=== PATIENT | female | born 1945 | race Caucasian/White ===

== ENCOUNTER → 2024-03-16 | Outpatient (CLI) | payer MEDICARE, SELFPAY ==
[2024-03-16 12:13] LABS: INR 3.3 (0.9-1.3)
[2024-03-16 12:19] LABS: Prothrombin Time 33.4 Seconds (9.0-12.2)
== END | disposition home or self-care (01) ==
LOC: COPL 11:12
PROVIDERS: PCP Internal Medicine; Referring Provider Internal Medicine Cardiovascular Disease; Visit Provider Internal Medicine Cardiovascular Disease
DX: I48.20 Chronic atrial fibrillation, unspecified (principal)
CPT/HCPCS: 36415; 85610

== ENCOUNTER → 2024-03-23 | Outpatient (CLI) | payer MEDICARE, SELFPAY ==
[2024-03-23 12:52] LABS: INR 2.4 (0.9-1.3); Prothrombin Time 24.6 Seconds (9.0-12.2)
== END | disposition home or self-care (01) ==
LOC: COPL 11:23
PROVIDERS: PCP Internal Medicine; Referring Provider Internal Medicine Cardiovascular Disease; Visit Provider Internal Medicine Cardiovascular Disease
DX: I48.20 Chronic atrial fibrillation, unspecified (principal)
CPT/HCPCS: 36415; 85610

== ENCOUNTER → 2024-04-22 | Outpatient (CLI) | payer MEDICARE, SELFPAY ==
[2024-04-22 12:41] LABS: INR 2.1 (0.9-1.3); Prothrombin Time 21.5 Seconds (9.0-12.2)
== END | disposition home or self-care (01) ==
LOC: COPL 11:19
PROVIDERS: PCP Internal Medicine; Referring Provider Internal Medicine Cardiovascular Disease; Visit Provider Internal Medicine Cardiovascular Disease
DX: I48.20 Chronic atrial fibrillation, unspecified (principal)
CPT/HCPCS: 36415; 85610

== ENCOUNTER → 2024-05-18 | Outpatient (CLI) | payer MEDICARE, SELFPAY ==
[2024-05-18 12:27] LABS: INR 1.6 (0.9-1.3); Prothrombin Time 17.3 Seconds (9.0-12.2)
== END | disposition home or self-care (01) ==
PROVIDERS: PCP Internal Medicine; Referring Provider Internal Medicine Cardiovascular Disease; Visit Provider Internal Medicine Cardiovascular Disease
DX: I48.20 Chronic atrial fibrillation, unspecified (principal)
CPT/HCPCS: 36415; 85610

== ENCOUNTER 2024-05-20 14:02 | Inpatient (IN) | payer MEDICARE, SELFPAY ==
[2024-05-20 14:25] VITALS: BP 161/84; PULSE 88; RESP 19; TEMP 36.7; O2SAT 98; BMI 37.8
--- NOTE | 2024-05-20 14:36 | XR_ITS ---
Examination: CT abdomen with intravenous contrast CT pelvis with intravenous contrast 2-D coronal reconstructions 2-D sagittal reconstructions Date and time of exam:May 20, 2024 1658 hours Comparison March 31, 2012 INDICATIONS: Right lower abdominal pain beginning 2 days ago. CTDI: vol (mGy) 12.4 DLP: (mGycm) 725 Technique: Multiple axial sections of the abdomen and pelvis have been obtained. 64 slice high-resolution scanner used. 3 mm axial sections have been obtained, post intravenous injection 60 cc [id number] 2-D sagittal, coronal reconstructions obtained. Low dose protocols were performed. One or more of the following dose reduction techniques were used; automated exposure control, adjustment of the mA and/or KV according to patient size, use of iterative reconstruction technique. Findings: Mild enlargement left atrium left ventricle Small right lobe liver cyst Cholelithiasis Small splenule Gastric sutures No pancreatic mass 23 mm left adrenal nodule Left extrarenal pelvis stable compared with March 31, 2012 No renal or ureteral calculi, no hydronephrosis Abdominal aortic calcification Interval hemorrhage in the right lower abdominal wall, largely rectus hematoma measuring 10 x 5.2 x 17 cm No bowel obstruction No diverticulitis Atrophic uterus Urinary bladder intact Advanced degenerative disc disease lumbar spine IMPRESSION: Large hematoma in the right anterior lower abdominal wall, 10 x 5.2 x 17 cm
--- NOTE | 2024-05-20 14:37 | PD.EDRME ---
Rapid Medical Screening Exam RME Arrival date/time: 05/20/24 14:02 78-year-old female presents to the emergency department with complaints of right lower quadrant abdominal pain x 1 day. I have greeted and performed a focused initial assessment of this patient. Initial appropriate labs ordered at this time. A comprehensive ED assessment and evaluation of the patient and analysis of all test and completion of medical decision making process will be conducted by additional ED provider. Chief Complaint: General Adult/Misc Complain Time Seen by Provider: 05/20/24 14:28 Vital signs: Vital Signs Temperature 98.0 F 05/20/24 14:25 Pulse Rate 88 05/20/24 14:25 Respiratory Rate 19 05/20/24 14:25 Blood Pressure 161/84 H 05/20/24 14:25 Pulse Oximetry (%) 98 05/20/24 14:25 Oxygen Delivery Method Room Air 05/20/24 14:25
[2024-05-20 15:07] LABS: Collection Type, Urine Clean Catch
[2024-05-20 15:09] LABS: Basophils % (Auto) 0 % (0-2.5); Eosinophils # (Auto) 0.2 Thou/mm3 (0.0-0.5); Eosinophils % (Auto) 2 % (0-10); Hemoglobin 11.7 g/dL (12.0-16.0); Immature Granulocytes % (Auto) 0 % (0-0); Immature Granulocytes Auto 0.02 Thou/mm3 (0.00-0.00); Lymphocytes # (Auto) 1.4 Thou/mm3 (1.0-4.8); Lymphocytes % (Auto) 15 % (10-50); Mean Corpuscular HGB Conc 32.5 g/dl (31.0-37.0); Mean Corpuscular Hemoglobin 28.1 pg (25.0-35.0); Mean Corpuscular Volume 86 fL (80-100); Monocytes # (Auto) 0.7 Thou/mm3 (0.0-0.8); Monocytes % (Auto) 8 % (0-12); Neutrophils # (Auto) 6.7 Thou/mm3 (1.8-7.7); Neutrophils % (Auto) 75 % (37-80); Nucleated Red Blood Cell % 0 /100 WBC (0); Platelet Count 265 Thou/mm3 (140-440); RDW Standard Deviation 45.6 fL (36.4-46.3); Red Blood Count 4.17 Miln/mm3 (4.00-5.20)
[2024-05-20 15:30] LABS: Alanine Aminotransferase 11 U/L (10-49); Albumin, Serum 4.9 gm/dL (3.4-4.8); Albumin/Globulin Ratio 1.9 (1.2-2.2); Alkaline Phosphatase 82 U/L (46-116); Anion Gap 8 (7-16); Aspartate Amino Transferase 23 U/L (0-34); BUN/Creatinine Ratio 18 Ratio (12-20); Bilirubin,Total 0.5 mg/dL (0.3-1.2); Blood Urea Nitrogen 18 mg/dL (9-23); Calcium 10.2 mg/dL (8.3-10.6); Calcium (Corrected) 10.2 mg/dL (8.5-10.1); Carbon Dioxide 28.6 mMol/L (20.0-31.0); Chloride 107 mMol/L (98-107); Estimated Creatinine Clearance 53.2 mL/min (>60); Globulin 2.6 gm/dL (2.3-3.5); Glucose 113 mg/dL (74-106); Lipase 39 U/L (12-53); Osmolality,Calculated 289 (275-295); Potassium 4.6 mMol/L (3.4-5.1); Sodium 144 mMol/L (136-145); Total Protein 7.5 gm/dL (5.7-8.2); eGFR 58 See Note
[2024-05-20 15:46] LABS: Bacteria,Urine Rare; Bilirubin,Urine Negative (Negative); Blood,Urine Negative (Negative); Clarity,Urine Clear (Clear/Hazy); Color,Urine Lt-Yellow (Lt Yel-Yel); Glucose, Urine Negative (Negative); Hyaline Casts,Urine < 1 /hpf (0-1); Ketones,Urine Negative (Negative); Leukocyte Esterase,Urine Negative (Negative); Nitrite,Urine Negative (Negative); Protein,Urine Negative (Neg - Trace); RBC,Urine 2 /hpf (0-3); Squamous Epithelial Cell,Urine < 1 /hpf (0-5); Urobilinogen,Urine Negative mg/dL (0.0-1.0); WBC,Urine 1 /hpf (0-5)
[2024-05-20 17:34] VITALS: BP 147/85; PULSE 82; RESP 18; TEMP 36.4; O2SAT 97
[2024-05-20] MEDS: ONDANSETRON INJ 2 MG/ML INJ 2 ML 4 MG IV (17:39)
[2024-05-20] MEDS: MORPHINE SULF INJ 10 MG/ML VIAL 5 MG IVP (17:39)
--- NOTE | 2024-05-20 17:39 | EDNOTE_ITS ---
ED Abdominal Pain RME/HPI General Chief Complaint: General Adult/Misc Complain Stated complaint: right lower pelvic pain Time seen by provider: 05/20/24 14:28 Arrival date/time: 05/20/24 14:02 RME / HPI RME / HPI narrative: 05/20/24 14:02 78-year-old female presents to the emergency department with complaints of right lower quadrant abdominal pain x 1 day. I have greeted and performed a focused initial assessment of this patient. Initial appropriate labs ordered at this time. A comprehensive ED assessment and evaluation of the patient and analysis of all test and completion of medical decision making process will be conducted by additional ED provider. DR. ORTEGA MAIN ED EVALUATION: 78 year old female presents to the Emergency Department with complaint of right lower quadrant pain onset 1 day. Pain is described as aching and rated mild to moderate in severity. No radiation reported at this time. Patient denies any other symptoms at this time. PMHx: Chronic atrial fibrillation, CHF, hyperlipidemia, and right knee replacement surgery. Social Hx: No tobacco, alcohol, or substance use. Related Data Home Medications ?Medication ?Instructions ?Recorded ?Confirmed calcium 600 mg (as 1 tab PO BID 08/15/22 08/16/22 carbonate)-vitamin D3 5 mcg (200 unit) tablet carvedilol 6.25 mg tablet 6.25 mg PO HS 08/15/22 08/16/22 digoxin 125 mcg (0.125 mg) tablet 125 mcg PO HS 08/15/22 08/16/22 furosemide 20 mg tablet 20 mg PO QDAY 08/15/22 08/16/22 lysine 1,000 mg tablet 1,000 mg PO BID 08/15/22 08/16/22 omeprazole 20 mg capsule,delayed 20 mg PO QDAY 08/15/22 08/16/22 release simvastatin 40 mg tablet 40 mg PO HS 08/15/22 08/16/22 vitamin B complex 1 cap PO QDAY 08/15/22 08/16/22 warfarin 1 mg tablet 1 mg PO QDAY 08/15/22 08/16/22 warfarin 6 mg tablet 6 mg PO QDAY 08/15/22 08/16/22 Allergies Allergy/AdvReac Type Severity Reaction Status Date / Time No Known Allergies Allergy Verified 08/16/22 08:38 Review of Systems Review of Systems Systems Reviewed: All systems reviewed, normal except as documented Narrative Review of Systems: GEN: No fever, no chills, no weight loss EYES: No discharge, no visual changes, no pain HEENT: No ear pain, no congestion, no sore throat PULM: No shortness of breath, no cough, no congestion CV: No chest pain, no dyspnea on exertion, no palpitations GI: No nausea, no vomiting, no diarrhea, + right lower quadrant pain, no constipation : No frequency, no urgency and no dysuria MUSC/SKEL: No joint pain, no back pain SKIN: No rash PSYCH: No hallucinations, no depression HEME/LYMPH: No easy bleeding or bruising tendencies NEURO: No weakness, no headache Past Medical History Past Medical History NEUROLOGIC: Negative Neurological Disorders or Seizures CARDIAC: Positive Atrial Fibrillation, Hypercholesterolemia, Hypertension and Hypotension; Negative Cardiac Disorders or Congestive Heart Failure RESPIRATORY: Negative Chronic Obstructive Pulmonary Disease (COPD) or Asthma GASTROINTESTINAL: Positive Gastrointestinal Disorders and Gastroesophageal Reflux Disease GENITOURINARY: Negative Genitourinary Disorders or Renal Disease REPRODUCTIVE: Positive Previous Pregnancies (); Negative Pelvic Inflammatory Disease MUSCULOSKELETAL: Negative Musculoskeletal Disorders ENDOCRINE: Negative Endocrine Disorders, Diabetes Mellitus Type 1 or Diabetes Mellitus Type 2 HEMATOLOGIC: Negative Blood Disorders or Sickle Cell Disease OTHER HISTORY: Positive Blood Transfusions; Negative Blood Transfusion Reaction, Anesthesia Reactions, Clostridium Difficile or Cancer Family History FAMILY HISTORY: Negative Family Cardiac Disorders Surgical History SURGICAL: Positive Joint Replacement (right knee) and of Shoulder Sx (right shoulder) Social History SMOKING STATUS: Never smoker ED Exam Narrative Physical exam: GENERAL APPEARANCE: alert and oriented x 4, well-developed, well-nourished, no acute distress VITALS: All vitals were reviewed and the pulse ox is 97% on room air, which is normal according to my interpretation. HEENT: Normocephalic, atraumatic; pupils equal, round, reactive to light; EOMI; mucous membranes pink, moist; oropharynx clear NECK: Supple LUNGS: CTABL; no wheezes, no rales, no rhonchi HEART: Regular rate, regular rhythm; normal S1, S2; no murmurs ABDOMEN: non distended; normal BS; soft, no tenderness, no guarding, no rebound; no masses, no organomegaly, no hernia BACK: no CVA tenderness EXTREMITIES: atraumatic; no edema NEUROLOGIC: awake; alert and oriented x4; cranial nerves II-XII grossly intact; no focal sensory or motor deficits PSYCHIATRIC: appropriate mood and affect SKIN: warm, dry, normal color; no rashes Course Quality Measures none Orders Category Date Time Status Admit to Inpatient Status Routine Admission 05/20/24 19:54 Active Patient Condition Routine Admission 05/20/24 19:54 Ordered Activity as Tolerated Routine Care 05/20/24 19:55 Ordered COVID-19 Screening Questionnaire NOW Care 05/20/24 18:[address] Screening NOW Care 05/20/24 14:37 Active Decision to Admit X1 Care 05/20/24 18:11 Active EKG (ED ONLY) *Do not use* NOW Care 05/20/24 21:00 Active Insert IV NOW Care 05/20/24 14:36 Active Miscellaneous Nursing Order NOW Care 05/20/24 19:59 Active Notify provider NEEDED Care 05/20/24 19:54 Active Sequential Compression Device QSHIFT Care 05/20/24 19:54 Active Consult to General Surgery Stat Cons 05/20/24 20:08 Ordered Diet Cardiac Diet 05/20/[address] abdomen pelvis w con Stat Exams 05/20/24 14:36 Completed EKG (ED Only) Stat Exams 05/20/24 21:00 Ordered Basic Metabolic Panel AM DRAW Lab 05/21/24 05:00 Ordered Basic Metabolic Panel AM DRAW Lab 05/22/24 05:00 Ordered Basic Metabolic Panel AM DRAW Lab 05/23/24 05:00 Ordered CBC AM DRAW Lab 05/21/24 05:00 Ordered CBC AM DRAW Lab 05/22/24 05:00 Ordered CBC AM DRAW Lab 05/23/24 05:00 Ordered CBC Stat Lab 05/20/24 14:54 Completed Comprehensive Metabolic Panel Stat Lab 05/20/24 14:54 Completed Lipase Stat Lab 05/20/24 14:54 Completed PT [Prothrombin Time with INR] Stat Lab 05/20/24 14:54 Completed PTT [Partial Thromboplastin Time] Stat Lab 05/20/24 14:54 Completed Prothrombin Time with INR AM DRAW Lab 05/21/24 05:00 Ordered Prothrombin Time with INR AM DRAW Lab 05/22/24 05:00 Ordered Prothrombin Time with INR AM DRAW Lab 05/23/24 05:00 Ordered Urinalysis Stat Lab 05/20/24 15:00 Completed Acetaminophen Tab [Tylenol Tab] Med 05/20/24 19:54 Active 650 mg PO Q6H PRN Milk Of Magnesia Susp [Mom Susp] Med 05/20/24 19:54 Active 30 ml PO QDAY PRN Morphine Inj Med 05/20/24 20:07 Active 1 mg IVP Q6H PRN Morphine Inj Med 05/20/24 17:30 Discontinued 5 mg IVP X1 ONE Ondansetron Inj [Zofran Inj] Med 05/20/24 19:54 Active 4 mg IV Q6H PRN Ondansetron Inj [Zofran Inj] Med 05/20/24 17:29 Discontinued 4 mg IV X1 ONE Code Status Routine Oth 05/20/24 19:54 Ordered Vital Signs Vital signs: Vital Signs Temperature 98.0 F 05/20/24 14:25 Pulse Rate 88 05/20/24 14:25 Respiratory Rate 19 05/20/24 14:25 Blood Pressure 161/84 H 05/20/24 14:25 Pulse Oximetry (%) 98 05/20/24 14:25 Oxygen Delivery Method Room Air 05/20/24 14:25 Abdominal Pain MDM MDM Narrative MDM Narrative:: Pauline Boudreaux am scribing for and in the presence of Dr. Ortega. Patient data External records reviewed:: [facility] previous records (Reviewed colonoscopy note by Dr. Santacruz dated 08/16/22.) Clinical information provided by:: patient Social determinants that could affect healthcare access:: none Patient has the following chronic illnesses:: Chronic atrial fibrillation, CHF, hyperlipidemia, and right knee replacement surgery. How is presenting disease/condition affected by chronic disease/condition?: exacerbated by Evaluation data The following diagnostics were reviewed and interpreted by me:: lab results and radiology exam(s) Lab and/or radiology exams considered but not ordered:: none Interpretation Summary: Procedure(s): CT abdomen pelvis w con Accession Number(s): [id number] cc: Slim Morales MD; Vernon Mattson MD; Cecile Sargent~ Examination: CT abdomen with intravenous contrast CT pelvis with intravenous contrast 2-D coronal reconstructions 2-D sagittal reconstructions Date and time of exam:May 20, 2024 1658 hours Comparison March 31, 2012 INDICATIONS: Right lower abdominal pain beginning 2 days ago. CTDI: vol (mGy) 12.4 DLP: (mGycm) 725 Technique: Multiple axial sections of the abdomen and pelvis have been obtained. 64 slice high-resolution scanner used. 3 mm axial sections have been obtained, post intravenous injection 60 cc [id number] 2-D sagittal, coronal reconstructions obtained. Low dose protocols were performed. One or more of the following dose reduction techniques were used; automated exposure control, adjustment of the mA and/or KV according to patient size, use of iterative reconstruction technique. Findings: Mild enlargement left atrium left ventricle Small right lobe liver cyst Cholelithiasis Small splenule Gastric sutures No pancreatic mass 23 mm left adrenal nodule Left extrarenal pelvis stable compared with March 31, 2012 No renal or ureteral calculi, no hydronephrosis Abdominal aortic calcification Interval hemorrhage in the right lower abdominal wall, largely rectus hematoma measuring 10 x 5.2 x 17 cm No bowel obstruction No diverticulitis Atrophic uterus Urinary bladder intact Advanced degenerative disc disease lumbar spine IMPRESSION: Large hematoma in the right anterior lower abdominal wall, 10 x 5.2 x 17 cm Dictated By: Vernon Mattson MD Medications / Prescriptions Medications or Prescriptions considered but not ordered:: none Medication administrations:: Medication Administration History Acetaminophen (Acetaminophen 325 Mg Tablet) 650 mg PO Q6H PRN PRN Reason: Fever >101.5 Stop: 06/19/24 19:53 Magnesium Hydroxide (Milk Of Magnesia Susp 30 Ml Udc) 30 ml PO QDAY PRN; Protocol PRN Reason: CONSTIPATION Stop: 06/19/24 19:53 Morphine Sulfate (Morphine Sulf Inj 10 Mg/Ml Vial) 1 mg IVP Q6H PRN PRN Reason: PAIN SCALE 4-10(Mod-Sev Ondansetron HCl (Ondansetron Inj 2 Mg/Ml Inj 2 Ml) 4 mg IV Q6H PRN; Protocol PRN Reason: NAUSEA OR VOMITING Stop: 06/19/24 19:53 Discontinued Medications Morphine Sulfate (Morphine Sulf Inj 10 Mg/Ml Vial) 5 mg IVP X1 ONE Stop: 05/20/24 17:31 Last Admin: 05/20/24 17:39 Dose: 5 mg Documented By: SAMM Ondansetron HCl (Ondansetron Inj 2 Mg/Ml Inj 2 Ml) 4 mg IV X1 ONE; Protocol Stop: 05/20/24 17:30 Last Admin: 05/20/24 17:39 Dose: 4 mg Documented By: SAMM see above Consultations Consultation(s) initiated? (list below): Yes Consultation #1 (Physician, Specialty, Details): Discussed test HPI, PMHx, lab, radiology results and/or management with hospitalist. Will admit for further evaluation and management. Accepts patient for admission. Time: 18:30 Diagnosis Differential diagnosis abdominal pain: abdominal pain, acute appendicitis and calculus of kidney Most likely diagnosis given after review of the tests above:: As noted below. Admission Indicated Admission indicated?: indicated Admission Request Was there a request for admission?: Yes Admission Attestation Admission request attestation: Discussed case with [] from Hospitalist service regarding admission. Discussed patients ED course, exam findings, labs, and radiology results. The Hospitalist [agrees,declines] to accept the patient for admission. Disposition Plan Disposition Plan: Admit Discharge Plan Plan Patient Disposition: Admit Acute Care w/in Hospital Prescriptions/Referrals Prescriptions/Med Rec: No Action carvedilol 6.25 mg tablet 6.25 mg PO HS Patient Comments: TAKE 1 TABLET BY MOUTH TWICE DAILY lysine 1,000 mg Tablet 1,000 mg PO BID calcium carbonate-vitamin D3 600 mg-5 mcg (200 unit) Tablet 1 tab PO BID simvastatin 40 mg tablet 40 mg PO HS Patient Comments: TAKE 1 TABLET BY MOUTH ONCE DAILY warfarin 6 mg tablet 6 mg PO QDAY Patient Comments: TAKE 1 TABLET BY MOUTH ONCE DAILY omeprazole 20 mg capsule,delayed release(DR/EC) 20 mg PO QDAY Patient Comments: TAKE 1 CAPSULE BY MOUTH ONCE DAILY digoxin 125 mcg (0.125 mg) tablet 125 mcg PO HS Patient Comments: TAKE 1 TABLET BY MOUTH ONCE DAILY furosemide 20 mg tablet 20 mg PO QDAY Patient Comments: TAKE 1 TABLET BY MOUTH ONCE DAILY warfarin 1 mg tablet 1 mg PO QDAY Patient Comments: TAKE 1 TABLET BY MOUTH ONCE DAILY vitamin B complex Capsule 1 cap PO QDAY Referrals: Slim Morales MD [Primary Care Provider] - In 1 week Patient/Caregiver Discharge Instructions Print Language: Chinese Stand Alone Forms: [employer] Award Info., Patient Portal Info Letter
[2024-05-20 17:59] LABS: INR 1.7 (0.9-1.3); Partial Thromboplastin Time 33.7 Seconds (22.0-36.0); Prothrombin Time 17.6 Seconds (9.0-12.2)
--- NOTE | 2024-05-20 18:05 | PC.NURSE ---
Pt takes 5mg warfarin daily
--- NOTE | 2024-05-20 18:08 | EDNOTE_ITS ---
Emergency Room Addendum Addendum Narrative: 1804:Discussed with Dr. Hodge, Gen Surg deputy insurance commissioner, who will consult on the patient. 1809: Discussed with Dr Vargas, the medicine resident deputy insurance commissioner, who accepts the patient for admission.
--- NOTE | 2024-05-20 18:08 | PD.EDADDENDU ---
Emergency Room Addendum Addendum Narrative: 1804:Discussed with Dr. Hodge, Gen Surg train station server, who will consult on the patient. 1809: Discussed with Dr Vargas, the medicine resident train station server, who accepts the patient for admission.
--- NOTE | 2024-05-20 18:13 | EVENTNT_ITS ---
<Statement entered by Abena Pérez MD - 05/25/24 12:15> I reviewed above note and agree with findings and plans. I have also personally examined the patient with medicine team and went over assessment and plan with medical team including internet e commerce specialist and resident physician. Documentation for date of: 05/20/24 Event Note Event Note: The patient is a 78-year-old female with significant past medical history of Chronic atrial fibrillation on Coumadin, CHF, hyperlipidemia and right knee replacement who presented to ED with chief complaint of right lower abdominal pain for 1 day. Abdomen/pelvis CT was significant for large hematoma in the right anterior lower abdominal wall, 10 x 5.2 x 17 cm. As per ED physician, general surgeon Dr. Hodge was contacted and he agreed on consulting on this patient. As we received the call from ED physician after 6 PM, we will let the night hospitalist team know about this. The patient's management plan was discussed with my attending physician MD Rajesh St MD, PGY2
[2024-05-20 19:40] VITALS: BP 121/72; PULSE 82; RESP 16; TEMP 36.6; O2SAT 99
--- NOTE | 2024-05-20 19:45 | PD.RESHP ---
Documentation for date of: 05/20/24 [facility] History of Present Illness Chief complaint: Abdominal pain History of present illness: A 78yr old femlae with significant past medical history of Rheumatic Heart disease diagnosed at the age of 4, Chronic atrial fibrillation on warfarin 5mg, Hypertension, Hyperlipidemia, s/p right knee replacement, s/p right shoulder surgery ?reverse total shoulder arthroplasty presented to the hospital with chief complaints of abdominal pain since 1 day. Patient was apparently normal 1 day ago, patient went to physiotherapy for her right shoulder and when trying to get up from the bed she noticed sudden onset of abdominal pain and the physiotherapist over there helped her to sit her up and since then patient has severe pain mainly in right lower quadrant of abdomen. Denies fever, constipation, diarrhea, shortness of breath, chest pain, palpitations, blood/blackish discoloration of stools. Patient endorsed that her last warfarin intake was yesterday at 5 PM. Denies bleeding manifestations from any other sites. ED Course: -Initial vitals were stable except for blood pressure of 161/84 mmHg. -Labs significant for Hb 11.7, INR 1.7, PT 17.6, BUN 18, creatinine 1. -CT abdomen showed large hematoma in right lower abdominal wall measuring 10 x 5.2 x 17 cm. -In the ED, patient was given ondansetron and morphine. -Patient was admitted for hematoma in abdominal wall Past medical history: Rheumatic heart disease, chronic atrial fibrillation on warfarin, hypertension, Hyperlipidemia Past surgical history: Right knee replacement, right shoulder surgery ? Reverse total shoulder total arthroplasty, bariatric surgery 20 years ago Social history: Occasional alcohol intake, denies smoking, marijuana or other illicit drug abuse. Review of Systems Review of Systems Narrative Review of Systems: Constitutional: No Weight Change, No Fever, No Chills, No Night Sweats, No Fatigue, No Malaise ENT/Mouth: No Hearing Changes, No Ear Pain, No Nasal Congestion, No Sinus Pain, No Hoarseness, No sore throat, No Rhinorrhea, No Swallowing Difficulty Eyes: No Eye Pain, No Swelling, No Redness, No Foreign Body, No Discharge, No Vision Changes Cardiovascular: No Chest Pain, No SOB, No PND, No Dyspnea on Exertion, No Orthopnea, No Edema, No Palpitations Respiratory: No Cough, No Sputum, No Wheezing, No Dyspnea Gastrointestinal: No Nausea, No Vomiting, No Diarrhea, No Constipation, RLQ pain, No Heartburn, No Anorexia, No Dysphagia, No Hematochezia, No Melena, No Flatulence, No Jaundice Genitourinary: No Dysuria, No Urinary Frequency, No Hematuria, No Urinary Incontinence, No Urgency, No Flank Pain, No Urinary Flow Changes, No Hesitancy Musculoskeletal: No Arthralgias, No Myalgias, No Joint Swelling, No Joint Stiffness, No Back Pain, No Neck Pain, No Injury History Skin: No Skin Lesions, No Pruritis Neuro: No Weakness, No Numbness, No Paresthesias, No Loss of Consciousness, No Syncope, No Dizziness, No Headache, No Coordination Changes, No Recent Falls Past Medical History Past Medical History CARDIAC: Positive Atrial Fibrillation, Rheumatic Fever and Hypertension MUSCULOSKELETAL: Positive Arthritis Exam Vital Signs Temp Pulse Resp BP Pulse Ox O2 Del Method 98 F 82 16 121/72 99 Room Air 05/20/24 19:40 05/20/24 19:40 05/20/24 19:40 05/20/24 19:40 05/20/24 19:40 05/20/24 19:40 Narrative Exam General: Awake. Lying comfortably on the bed. HEENT: Normocephalic, atraumatic, mucous membranes moist. Heart: Regular rate and rhythm, no murmurs. Lungs: Clear to auscultation with no wheezing or crackles. Abdomen: Soft, nondistended, severe tenderness noted in the right lower quadrant and tense swelling is felt, positive bowel sounds. ?No guarding or rebound tenderness. Neurologic: Alert and oriented x3, no gross neurological deficit, and patient able to move all 4 extremities. Extremities: No edema. Skin: No rash or ecchymoses. Results: Labs 05/20/24 14:54 05/20/24 14:54 Labs: Short CBC 05/20/24 Range/Units 14:54 WBC 9.0 (3.6-11.0) Thou/mm3 Hgb 11.7 L (12.0-16.0) g/dL Hct 36.0 (36.0-46.0) % Plt Count 265 (140-440) Thou/mm3 BMP 05/20/24 14:54 Sodium 144 Potassium 4.6 Chloride 107 Carbon Dioxide 28.6 BUN 18 Creatinine 1.0 Glucose 113 H Calcium 10.2 Liver Function 05/20/24 Range/Units 14:54 Total Bilirubin 0.5 (0.3-1.2) mg/dL AST 23 (0-34) U/L ALT 11 (10-49) U/L Alkaline Phosphatase 82 (46-116) U/L Albumin 4.9 H (3.4-4.8) gm/dL Urine 05/20/24 Range/Units 15:00 Urine Color Lt-Yellow (Lt Yel-Yel) Urine Clarity Clear (Clear/Hazy) Urine pH 6.0 (5.0-7.0) Ur Specific [place] 1.010 (1.001-1.035) Urine Protein Negative (Neg - Trace) Urine Glucose (UA) Negative (Negative) Quality Measures Quality Measures none Advance care planning discussed with:: patient Medications Home Medications and Allergies Home Medications ?Medication ?Instructions ?Recorded ?Confirmed ?Type calcium 600 mg (as 1 tab PO BID 08/15/22 05/20/24 History carbonate)-vitamin D3 5 mcg (200 unit) tablet carvedilol 6.25 mg tablet 6.25 mg PO BID 08/15/22 05/20/24 History digoxin 125 mcg (0.125 mg) tablet 125 mcg PO HS 08/15/22 05/20/24 History furosemide 20 mg tablet 20 mg PO QDAY 08/15/22 05/20/24 History lysine 1,000 mg tablet 1,000 mg PO BID 08/15/22 05/20/24 History simvastatin 40 mg tablet 40 mg PO HS 08/15/22 05/20/24 History vitamin B complex 1 cap PO QDAY 08/15/22 05/20/24 History losartan 100 mg tablet 100 mg PO QDAY 05/20/24 05/20/24 History meloxicam 15 mg tablet 15 mg PO QDAY 05/20/24 05/20/24 History omeprazole 40 mg capsule,delayed 40 mg PO QDAY 05/20/24 05/20/24 History release oxycodone-acetaminophen 5 mg-325 1 tab PO Q4HR PRN Pain (Scale 05/20/24 05/20/24 History mg tablet Score 4-6) warfarin 5 mg tablet 5 mg PO HS 05/20/24 05/20/24 History Allergies Allergy/AdvReac Type Severity Reaction Status Date / Time No Known Allergies Allergy Verified 08/16/22 08:38 Visit Medications Discontinued Medications Morphine Sulfate (Morphine Sulf Inj 10 Mg/Ml Vial) 5 mg IVP X1 ONE Stop: 05/20/24 17:31 Last Admin: 05/20/24 17:39 Dose: 5 mg Ondansetron HCl (Ondansetron Inj 2 Mg/Ml Inj 2 Ml) 4 mg IV X1 ONE; Protocol Stop: 05/20/24 17:30 Last Admin: 05/20/24 17:39 Dose: 4 mg Assessment & Plan Plan A 78yr old femlae with significant past medical history of Rheumatic Heart disease diagnosed at the age of 4, Chronic atrial fibrillation on warfarin 5mg, Hypertension, Hyperlipidemia, s/p right knee replacement, s/p right shoulder surgery ?reverse total shoulder arthroplasty presented to the hospital with chief complaints of abdominal pain since 1 day and admitted for large anterior abdominal wall hematoma. # Large right abdominal wall hematoma # On warfarin 5 Mg -Patient presented with sudden onset of abdominal pain with tenderness since 1 day -Denies any other bleeding manifestations -On examination, severe tenderness with swelling noted in right lower quadrant and hypogastric area -Labs showed mild anemia 11.7, INR 1.7. -CT abdomen showed large hematoma in right anterior abdominal wall measuring 10 x 5.2 x 17 cm Plan -Dr Hodge was consulted -Held warfarin for now -Monitor for any bleeding manifestations -Follow-up with PT with INR -Warfarin 1 Mg every 6 hourly as needed # Acute blood loss anemia -Hemoglobin in 02/25 is 12.5 -Hemoglobin at the time of admission is 11.7 -Monitor CBC and transfuse if needed # Chronic atrial fibrillation on warfarin # History of rheumatic heart disease -Patient is following with engineered wood designer Dr. Mock -Patient endorsed that she is compliant with warfarin intake and warfarin checks -Recent INR that she know of is 1.7. -Patient is using warfarin as she could not afford Eliquis -Patient is using carvedilol, furosemide and digoxin at home -Medication reconciliation is ordered -Resume medications # Hypertension -Blood pressure at the time of admission is 161/84 mmHg, likely due to pain -After giving morphine, blood pressure downtrended to 121/72 mmHg -Patient is using carvedilol at home -Resume once medical reconciliation # Hyperlipidemia -Lipid panel done on 04/27 showed cholesterol 214, HDL 105 -Resume simvastatin Hospital Maintenance: Dispo: medsurg DVT ppx: SCD GI ppx: not needed Diet : cardiac IV lines: peripheral Code status: Limited - DNI Patient plan of care was discussed with the attending physician, Dr. Rebecca Rainey, PGY1 Attending Provider Attestation/Addendum Face to face evaluation was performed by me. I have personally seen and examined the patient. I discussed the assessment and plan with the entire medicine team. I reviewed available medical records, imaging studies, laboratory results. I agree with the above subjective data, objective findings, assessment and plan except as corrected by me or noted below Abdominal hematoma systemic anticoagulation subtherapeutic INR abdominal pain due to above Pt developed abdominal pain while working with PT continue to hold warfarin Surgery consulted, CT abdomen done monitor closely, INR is 1.7 Her OP Aviation Safety Technician Dr Mock
--- NOTE | 2024-05-20 22:03 | PC.NURSE ---
report called at this time.
[2024-05-20 22:56] VITALS: BMI 35.0
[2024-05-20] MEDS: MORPHINE SULF INJ 10 MG/ML VIAL IVP (23:27)
[2024-05-21] VITALS (9 sets, daily range): BP systolic 113–152; BP diastolic 6–77; PULSE 64–88; RESP 15–18; TEMP 36.1–36.6; O2SAT 95–99
[2024-05-21 05:56] LABS: Basophils % (Auto) 0 % (0-2.5); Eosinophils # (Auto) 0.1 Thou/mm3 (0.0-0.5); Eosinophils % (Auto) 2 % (0-10); Hematocrit 29.1 % (36.0-46.0); Hemoglobin 9.5 g/dL (12.0-16.0); Immature Granulocytes % (Auto) 0 % (0-0); Immature Granulocytes Auto 0.02 Thou/mm3 (0.00-0.00); Lymphocytes # (Auto) 1.4 Thou/mm3 (1.0-4.8); Lymphocytes % (Auto) 20 % (10-50); Mean Corpuscular HGB Conc 32.6 g/dl (31.0-37.0); Mean Corpuscular Hemoglobin 28.1 pg (25.0-35.0); Mean Corpuscular Volume 86 fL (80-100); Monocytes # (Auto) 0.7 Thou/mm3 (0.0-0.8); Monocytes % (Auto) 10 % (0-12); Neutrophils # (Auto) 4.5 Thou/mm3 (1.8-7.7); Neutrophils % (Auto) 67 % (37-80); Nucleated Red Blood Cell % 0 /100 WBC (0); Platelet Count 202 Thou/mm3 (140-440); RDW Standard Deviation 45.6 fL (36.4-46.3); Red Blood Count 3.38 Miln/mm3 (4.00-5.20); White Blood Count 6.8 Thou/mm3 (3.6-11.0)
[2024-05-21 06:07] LABS: INR 1.5 (0.9-1.3); Prothrombin Time 15.6 Seconds (9.0-12.2)
[2024-05-21 06:18] LABS: Anion Gap 7 (7-16); BUN/Creatinine Ratio 25 Ratio (12-20); Blood Urea Nitrogen 15 mg/dL (9-23); Calcium 9.1 mg/dL (8.3-10.6); Carbon Dioxide 30.8 mMol/L (20.0-31.0); Chloride 103 mMol/L (98-107); Creatinine (Component) 0.6 mg/dL (0.6-1.3); Estimated Creatinine Clearance 91.5 mL/min (>60); Glucose 95 mg/dL (74-106); Osmolality,Calculated 282 (275-295); Potassium 3.6 mMol/L (3.4-5.1); Sodium 141 mMol/L (136-145); eGFR > 60 See Note
[2024-05-21] MEDS: MORPHINE SULF INJ 10 MG/ML VIAL IVP ×2 (07:31→22:14)
[2024-05-21] MEDS: PHYTONADIONE INJ 10 MG/ML AMP SC (09:52)
--- NOTE | 2024-05-21 10:19 | PC.SS ---
Initial assessment: Patient is a 78 year old female admitted for abdominal pain. Patient alert and oriented. Patient lives at home with spouse. Patient confirmed home address. Patient assigned her , Atilio Rivera as her alternate medical decision maker. Atilio is [place] speaking per patient. Patient reports to be independent with ADL's. Patient denies DME use at home. Patient follows Dr. Slim Morales for primary care. Patient pharmacy is [facility] in [place]. Patient would like to return home upon discharge, no needs identified at this time. D/c plan: Home Next of Kin: spouse, Atilio Rivera
--- NOTE | 2024-05-21 10:46 | PD.SURCONS ---
HPI Consult details Consult date: 05/21/24 Reason for consultation narrative: Rectus abdominis hematoma on coumadin History of present illness: 78-year-old female with history of hypertension, hypercholesterolemia, atrial fibrillation on Coumadin has had right shoulder surgery about 2 months ago. Patient states that yesterday while she was in physical therapy she developed acute onset of excruciating right-sided abdominal pain. She came into the emergency department where a CT scan revealed rectus sheath hematoma. Since admission her symptoms have improved. She denies history of trauma or similar symptoms in the past. Review of Systems Constitutional Constitutional: Denies chills Cardiovascular Cardiovascular: Denies chest pain Respiratory Respiratory: Denies cough Gastrointestinal Gastrointestinal: Reports abdominal pain, Denies nausea and Denies vomiting Hematologic/Lymphatic Hematologic/Lymphatic: Denies easy bleeding and Reports easy bruising Past Medical History Surgical History OTHER SURGICAL HX: gastric bypass, total knee replacement, shoulder surgery Social History SMOKING STATUS: Former smoker SUBSTANCE USE: does not use ALCOHOL: Current Meds Home Medications and Allergies Home Medications ?Medication ?Instructions ?Recorded ?Confirmed ?Type calcium 600 mg (as 1 tab PO BID 08/15/22 05/20/24 History carbonate)-vitamin D3 5 mcg (200 unit) tablet carvedilol 6.25 mg tablet 6.25 mg PO BID 08/15/22 05/20/24 History digoxin 125 mcg (0.125 mg) tablet 125 mcg PO HS 08/15/22 05/20/24 History furosemide 20 mg tablet 20 mg PO QDAY 08/15/22 05/20/24 History lysine 1,000 mg tablet 1,000 mg PO BID 08/15/22 05/20/24 History simvastatin 40 mg tablet 40 mg PO HS 08/15/22 05/20/24 History vitamin B complex 1 cap PO QDAY 08/15/22 05/20/24 History losartan 100 mg tablet 100 mg PO QDAY 05/20/24 05/20/24 History meloxicam 15 mg tablet 15 mg PO QDAY 05/20/24 05/20/24 History omeprazole 40 mg capsule,delayed 40 mg PO QDAY 05/20/24 05/20/24 History release oxycodone-acetaminophen 5 mg-325 1 tab PO Q4HR PRN Pain (Scale 05/20/24 05/20/24 History mg tablet Score 4-6) warfarin 5 mg tablet 5 mg PO HS 05/20/24 05/20/24 History Allergies Allergy/AdvReac Type Severity Reaction Status Date / Time No Known Allergies Allergy Verified 08/16/22 08:38 Exam Vital Signs Temp Pulse Resp BP Pulse Ox O2 Del Method 97.8 F 66 18 113/6 L 96 Room Air 05/21/24 07:39 05/21/24 07:39 05/21/24 07:39 05/21/24 07:39 05/21/24 07:39 05/21/24 07:39 Constitutional Constitutional: no acute distress Routine Abdominal Exam Abdominal: Present soft and normoactive bowel sounds; Absent distended Comments: Right-sided abdominal tenderness to palpation with guarding. No ecchymosis Results Results: Laboratory Laboratory results: results reviewed Results: Imaging CT scan - abdomen: report reviewed and image reviewed CT scan - pelvis: report reviewed and image reviewed Assessment & Plan Problem List (1) Rectus sheath hematoma: Status: Acute (2) Nontraumatic hematoma of muscle: Status: Acute Additional Assessment Additional comments: Spontaneous right rectus sheath hematoma secondary to Coumadin Plan Hold coumadin and correct INR. Apply warm pads. Will follow. I explained to the patient that most rectus sheath hematomas will resolve. If her symptoms do not improve she may require incision and drainage of hematoma. (1) Rectus sheath hematoma Qualifiers: Encounter type: initial encounter Qualified Code(s): S30.1XXA - Contusion of abdominal wall, initial encounter
--- NOTE | 2024-05-21 13:46 | PD.RESPRO ---
Documentation for date of: 05/21/24 Senior resident attestation: Patient was admitted for fairly large hematoma for rectus sheath, currently on warfarin which was withheld, general surgery consulted who recommended conservative measures and warm compresses at this time, will consider surgical intervention drainage if expanding hematoma. We reached out to patient's extruding machine operator Dr. Mock who agreed with withholding warfarin for at least 1 week at this time and to follow-up in his office for further management of anticoagulation. Also recommended resuming patient's home medications including carvedilol, digoxin, losartan and simvastatin. Upon resuming patient's medications, noted bradycardia, patient is asymptomatic at this time, but heart rate drops down to the high 40s transiently, sustaining 50s, EKG was ordered which shows heart rate 55/min, will continue to observe, reduced carvedilol dose to 3.125 mg twice daily for now, continue to observe. Patient evaluated and examined at the bedside, plan of care discussed with rest of the team including my attending physician, except as noted. Quresh PGY2 Subjective Subjective Interval history: Patient seen today at the bedside found awake, alert, orientedx3. Vital signs stable at this time. Labs unremarkable at this time. Patient was found with Large anterior hematoma on CT scan, General surgery, Dr. Hodge was consulted. Surgeon examined patient recommended warm compresses and conservative management at this time. No need for surgical intervention at this time. Cardiology, Dr. Mock consulted as patient is taking Warfarin for A-fib, recommends holding warfarin for 1 week at this time and to follow up in the office within 2 weeks of discharge for management of anticoagulation. Exam Vital Signs Temp Pulse Resp BP Pulse Ox O2 Del Method 97.8 F 68 18 152/70 H 99 Room Air 05/21/24 11:44 05/21/24 11:44 05/21/24 11:44 05/21/24 11:44 05/21/24 11:44 05/21/24 11:44 Narrative Exam Physical Exam GENERAL: NAD, AAOx3 HEENT: Moist mucosa. Eyes open, symmetrical, & clear CARDIO: Heart RRR, no obvious murmurs PULM: No noted coughing/dyspnea CTA B/L, no R/W/R GI: Abdomen soft, nondistended, some tenderness of RLQ. BSx4 SKIN/MSK/EXT: No wounds/rashes/edema/amputations, no pain on palpation. Pedal pulses present B/L NEURO: AAOx3, no focal neuro deficits, able to move all 4 extremities Objective Labs 05/22/24 05:50 05/22/24 05:50 Labs: Laboratory Results - last 24 hr 05/20/24 05/20/24 05/21/24 14:54 15:00 04:05 WBC 9.0 6.8 RBC 4.17 3.38 L Hgb 11.7 L 9.5 L D Hct 36.0 29.1 L MCV 86 86 MCH 28.1 28.1 MCHC 32.5 32.6 RDW Std Deviation 45.6 45.6 Plt Count 265 202 D Neut % (Auto) 75 67 Lymph % (Auto) 15 20 [place] % (Auto) 8 10 Eos % (Auto) 2 2 Baso % (Auto) 0 0 Neut # (Auto) 6.7 4.5 Lymph # (Auto) 1.4 1.4 [place] # (Auto) 0.7 0.7 Eos # (Auto) 0.2 0.1 Baso # (Auto) 0.0 0.0 Immature Gran # (Auto) 0.02 H 0.02 H Absolute Nucleated RBC 0.00 0.00 Immature Gran % 0 0 Nucleated RBC % 0 0 PT 17.6 H 15.6 H INR 1.7 H 1.5 H APTT 33.7 Sodium 144 141 Potassium 4.6 3.6 D Chloride 107 103 Carbon Dioxide 28.6 30.8 Anion Gap 8 7 BUN 18 15 Creatinine 1.0 0.6 Estim Creat Clear Calc 53.2 L 91.5 eGFR 58 L > 60 BUN/Creatinine Ratio 18 25 H Glucose 113 H 95 Calculated Osmolality 289 282 Calcium 10.2 9.1 Corrected Calcium 10.2 H Total Bilirubin 0.5 AST 23 ALT 11 Alkaline Phosphatase 82 Total Protein 7.5 Albumin 4.9 H Globulin 2.6 Albumin/Globulin Ratio 1.9 Lipase 39 Ur Collection Type Clean Catch Urine Color Lt-Yellow Urine Clarity Clear Urine pH 6.0 Ur Specific [place] 1.010 Urine Protein Negative Urine Glucose (UA) Negative Urine Ketones Negative Urine Blood Negative Urine Nitrite Negative Urine Bilirubin Negative Urine Urobilinogen (Auto) Negative Ur Leukocyte Esterase Negative Urine RBC 2 Urine WBC 1 Ur Squamous Epith Cells < 1 Urine Bacteria Rare Hyaline Casts < 1 Quality Measures Quality Measures none Advance care planning discussed with:: patient Assessment & Plan Assessment Current Active Medications: Generic Name Dose Route Start Last Admin Trade Name Freq PRN Reason Stop Dose Admin Acetaminophen 650 mg 05/20/24 19:54 Acetaminophen 325 Mg Tablet PO 06/19/24 19:53 Q6H PRN Fever >101.5 Magnesium Hydroxide 30 ml 05/20/24 19:54 Milk Of Magnesia Susp 30 Ml Udc PO 06/19/24 19:53 QDAY PRN CONSTIPATION Protocol Morphine Sulfate 1 mg 05/20/24 20:07 05/21/24 07:31 Morphine Sulf Inj 10 Mg/Ml Vial IVP 1 mg Q6H PRN Administration PAIN SCALE 4-10(Mod-Sev Ondansetron HCl 4 mg 05/20/24 19:54 Ondansetron Inj 2 Mg/Ml Inj 2 Ml IV 06/19/24 19:53 Q6H PRN NAUSEA OR VOMITING Protocol Plan 78yr old femlae with significant past medical history of Rheumatic Heart disease diagnosed at the age of 4, Chronic atrial fibrillation on warfarin 5mg, Hypertension, Hyperlipidemia, s/p right knee replacement, s/p right shoulder surgery ?reverse total shoulder arthroplasty presented to the hospital with chief complaints of abdominal pain since 1 day and admitted for large anterior abdominal wall hematoma. # Large right abdominal wall hematoma, while on warfarin therapy Patient presented with sudden onset of abdominal pain with tenderness since 1 day Denies any other bleeding manifestations On examination, severe tenderness with swelling noted in right lower quadrant and hypogastric areaLabs showed mild anemia 11.7, INR 1.7. CT abdomen showed large hematoma in right anterior abdominal wall measuring 10 x 5.2 x 17 cm General surgery examined patient will do conservative treatmetn at this time if hematoma does not resolve patient may need incision and drainage of hematoma -warm compressess -General surgery, Dr Hodge was consulted, appreciate recommendations -Hold warfarin at this time -Monitor for any bleeding manifestations -Follow-up with PT with INR # Acute blood loss anemia Hemoglobin in 02/25 is 12.5 Hemoglobin at the time of admission is 11.7 current Hg 9.5 -Monitor CBC -transfuse if Hg<7 # Chronic atrial fibrillation on warfarin # History of rheumatic heart disease #Hypertension Patient is following with extruding machine operator Dr. Mock Patient endorsed that she is compliant with warfarin intake and warfarin checks Recent INR that she know of is 1.7. Patient is using warfarin as she could not afford Eliquis Patient is using carvedilol, furosemide and digoxin at home - Warfarin on HOLD - on Carvedilol 6.25mg BID - on digoxin 125mcg PO HS - on losartan 100mg qday - on lasix 20mg qday # Hyperlipidemia Lipid panel done on 04/27 showed cholesterol 214, HDL 105 -on atorvastatin 20mg HS Case discussed with my senior Dr. Edward PGY-[address] Sandra Shah MD PGY-1 Disposition: Medsurg Fluids: None Feeding: Cardiac diet Thrombo prophylaxis: SCDs Gastric Ulcer prophylaxis: none CODE STATUS: DNI Attending Provider Attestation/Addendum Tanesha Boudreaux DO, attest that I was physically present for the torres portions of the service and evaluated the patient with the resident and I reviewed and discussed the case with the resident and agree with the resident's findings and plans of care as documented above Patient seen and evaluated this Am. She denies any trauma to her abdomen. Evaluated by surgeon who recommends warm compresses at this time. Warfarin on hold. Patient reports some improvement of size of hematoma and tenderness. No discolouration noted on abdomen. firmness noted to the right of umbilicus and tenderness to deep palpation.
--- NOTE | 2024-05-21 14:17 | PC.NURSE ---
Spoke with Aide, he stated that pt is clear on his end. Resume home meds except Coumadin, which he will assess with pt when she sees Emili in office next week. Spoke with Brenda and informed him of this information, he stated we will resume home meds as requested.
--- NOTE | 2024-05-21 16:11 | PC.SS ---
Rounding note: pending Dr. Mock consult and Dr. Hodge is on the case.
--- NOTE | 2024-05-21 16:50 | ESCONSULT_ITS ---
RE: ELDON RIVERA : 1945 DATE OF CONSULTATION: 05/21/2024 REFERRING PHYSICIAN: Hospitalist. HISTORY OF PRESENT ILLNESS: Ms. Eldon Rivera is a 78-year-old female who is known to have a history of chronic atrial fibrillation and the patient has been on chronic Coumadin therapy, history of chronic hypertension, history of congestive heart failure, history of arthritis requiring previous right knee surgery. The patient also has been having symptoms of right shoulder pain and was having right shoulder physiotherapy. Post physiotherapy, the patient on the day of admission started complaining of right-sided lower abdominal pain. The symptoms got worse and the patient was seen in the Emergency Room and was noted to have right lower abdominal hematoma. The patient denied any complaint of chest pain though, denied any complaint of skipped beats or palpitations. Denied any complaint of dizziness or diaphoresis. Denied any complaint of nausea, vomiting, or diarrhea. Presently, the patient is resting fairly comfortably in bed. PAST MEDICAL HISTORY: Significant for history of chronic atrial fibrillation for the last several years and the patient has had a previous history of electrical cardioversion of atrial fibrillation in 2010, history of angina pectoris for the last several years, though the patient has previous normal coronary angiography, history of chronic hypertension for the last several years, history of hyperlipidemia for the last several years, history of right knee arthroplasty a few years ago, history of right shoulder surgery. The patient also has had a history of bariatric surgery about 20 years ago. PERSONAL HISTORY: The patient is a nonsmoker, nonalcoholic, denies any history of drug abuse. PHYSICAL EXAMINATION: VITAL SIGNS: The patient's blood pressure is 152/70, pulse rate is 68 per minute and irregularly irregular, respirations are 18, temperature is 97.8. Oxygen saturation on room air is 99%. HEAD AND NECK: Unremarkable. JVP is not elevated. Carotid pulses are palpable on both sides. No carotid bruits heard. HEART: No cardiomegaly clinically. S1 and S2 are normal. No murmur or gallop is appreciated. The heart rhythm is irregularly irregular. LUNGS: Clear to percussion and auscultation. ABDOMEN: Soft. No organomegaly is noted. Mild tenderness is noted in the right lower abdominal area. EXTREMITIES: No pedal edema is noted. NEUROLOGIC: Unremarkable. No focal or neuro deficit is appreciated. LABORATORY DATA: The patient's lab work shows WBC count yesterday was 9000, hemoglobin 11.7 with a hematocrit of 36.0. Today's WBC count is 6,800, hemoglobin is down to 9.5 with a hematocrit of 29.1. The patient's prothrombin time on 05/18/2024 was 17.3 seconds with INR of 1.6. Yesterday his prothrombin time was 17.6 seconds with INR of 1.7 and today's prothrombin time is 15.6 seconds with INR of 1.5. The patient's BUN yesterday was 18, creatinine 1.0, potassium 4.6, and glucose of 113. Today the BUN is 15, creatinine 0.6, potassium level is 3.6, glucose is 95. DIAGNOSTIC DATA: CT scan of the abdomen was reported to show large hematoma in the right anterior lower abdominal wall measuring 10 cm x 5.2 cm x 17 cm. CLINICAL IMPRESSION: 1. Acute large hematoma, right lower abdominal area. 2. Chronic atrial fibrillation. 3. Congestive heart failure as per history, presently well controlled. 4. Chronic hypertension as per history, presently well controlled. 5. Hyperlipidemia as per history. SUGGESTIONS: I agree with the present plan of management of the patient of continuing withholding the Coumadin therapy, though the patient's rest of the medications should be started back on like carvedilol 6.25 mg b.i.d., digoxin 0.125 mg daily, furosemide 20 mg daily, losartan 100 mg daily. Simvastatin should also be started back as 40 mg daily. Once the patient's abdominal wall hematoma is resolved, the patient will be started back on anticoagulation therapy, though the PT and INR will be monitored very closely. DT: 14:23:30 TT: 16:48:00 Ref: [id number] - TID: [id number]
[2024-05-21] MEDS: DIGOXIN 0.125 MG TABLET PO (21:59)
[2024-05-21] MEDS: carVEDILOL 3.125 MG TABLET 6.25 MG PO (22:02)
[2024-05-21] MEDS: CALCIUM CARBONATE 600 MG TABLET PO (22:02)
[2024-05-21] MEDS: CHOLECALCIFEROL (Vitamin D3) 400 IU TABLET PO (22:02)
[2024-05-21] MEDS: ATORVASTATIN CALCIUM 20 MG TABLET PO (22:02)
[2024-05-22] VITALS (13 sets, daily range): BP systolic 100–125; BP diastolic 50–76; PULSE 39–83; RESP 13–18; TEMP 35.8–36.4; O2SAT 94–97
[2024-05-22] MEDS: oxyCODONE/APAP 5/325 TABLET 1 TAB PO ×2 (06:02→12:55)
[2024-05-22 06:18] LABS: Basophils % (Auto) 0 % (0-2.5); Eosinophils # (Auto) 0.1 Thou/mm3 (0.0-0.5); Eosinophils % (Auto) 2 % (0-10); Hematocrit 29.1 % (36.0-46.0); Hemoglobin 9.5 g/dL (12.0-16.0); Immature Granulocytes % (Auto) 0 % (0-0); Immature Granulocytes Auto 0.02 Thou/mm3 (0.00-0.00); Lymphocytes # (Auto) 1.1 Thou/mm3 (1.0-4.8); Lymphocytes % (Auto) 17 % (10-50); Mean Corpuscular HGB Conc 32.6 g/dl (31.0-37.0); Mean Corpuscular Hemoglobin 28.2 pg (25.0-35.0); Mean Corpuscular Volume 86 fL (80-100); Monocytes # (Auto) 0.8 Thou/mm3 (0.0-0.8); Monocytes % (Auto) 12 % (0-12); Neutrophils # (Auto) 4.4 Thou/mm3 (1.8-7.7); Neutrophils % (Auto) 69 % (37-80); Nucleated Red Blood Cell % 0 /100 WBC (0); Platelet Count 181 Thou/mm3 (140-440); RDW Standard Deviation 46.6 fL (36.4-46.3); Red Blood Count 3.37 Miln/mm3 (4.00-5.20); White Blood Count 6.4 Thou/mm3 (3.6-11.0)
[2024-05-22 06:34] LABS: INR 1.2 (0.9-1.3); Prothrombin Time 12.9 Seconds (9.0-12.2)
[2024-05-22 06:39] LABS: Anion Gap 6 (7-16); BUN/Creatinine Ratio 19 Ratio (12-20); Blood Urea Nitrogen 13 mg/dL (9-23); Calcium 9.1 mg/dL (8.3-10.6); Carbon Dioxide 31.3 mMol/L (20.0-31.0); Chloride 104 mMol/L (98-107); Creatinine (Component) 0.7 mg/dL (0.6-1.3); Estimated Creatinine Clearance 78.4 mL/min (>60); Glucose 103 mg/dL (74-106); Osmolality,Calculated 281 (275-295); Potassium 4.1 mMol/L (3.4-5.1); Sodium 141 mMol/L (136-145); eGFR > 60 See Note
[2024-05-22] MEDS: carVEDILOL 3.125 MG TABLET 6.25 MG PO (09:26)
[2024-05-22] MEDS: LOSARTAN POTASSIUM 25 MG TABLET 100 MG PO (09:26)
[2024-05-22] MEDS: CHOLECALCIFEROL (Vitamin D3) 400 IU TABLET PO (09:27)
[2024-05-22] MEDS: Furosemide 20 MG TABLET PO (09:27)
[2024-05-22] MEDS: CALCIUM CARBONATE 600 MG TABLET PO ×2 (09:27→21:50)
[2024-05-22] MEDS: MELOXICAM 7.5 MG TABLET 15 MG PO (09:27)
[2024-05-22] MEDS: PANTOPRAZOLE 40 MG TABLET PO ×2 (09:28→21:50)
[2024-05-22] MEDS: VITAMIN B COMPLEX TABLET 1 TAB PO (09:28)
--- NOTE | 2024-05-22 13:18 | PD.SURPROG ---
Documentation for date of: 05/22/24 Subjective Subjective Narrative: Patient is seen and examined. She is resting comfortably, pain is improving Exam Vital Signs Temp Pulse Resp BP Pulse Ox O2 Del Method 96.4 F L 82 18 117/63 97 Room Air 05/22/24 12:00 05/22/24 12:00 05/22/24 12:00 05/22/24 12:00 05/22/24 12:00 05/22/24 12:00 Constitutional Constitutional: no acute distress Routine Abdominal Exam Comments: Abdomen is soft and nondistended. Right lower quadrant much softer than yesterday Assessment & Plan Diagnosis (1) Nontraumatic hematoma of muscle: Status: Acute (2) Rectus sheath hematoma: Status: Acute Plan Hemoglobin remained stable. Clinically improving. Continue to hold Coumadin and apply warm pad. If continues to improve may discharge home tomorrow (2) Rectus sheath hematoma Qualifiers: Encounter type: initial encounter Qualified Code(s): S30.1XXA - Contusion of abdominal wall, initial encounter
--- NOTE | 2024-05-22 13:47 | PC.NURSE ---
notified dr. sequeira pt heart rate dropped to 46, pt complains of shortness of breath and pressure to epigastric area,md ordered an ekg
--- NOTE | 2024-05-22 13:52 | EKG_ITS ---
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 : 1945 Requested By: Ana Edward Order Number: [id number] Reading MD: Ana Edward Measurements Intervals [place] Rate: 55 P: UT: QRS: 158 QRSD: 82 T: 233 QT: 404 QTc: 388 Interpretive Statements ATRIAL FIBRILLATION WITH SLOW VENTRICULAR RESPONSE POSSIBLE RIGHT VENTRICULAR HYPERTROPHY [SOME/ALL OF: PROMINENT R IN V1, LATE TRANSITION, RAD, PAULINO, SSS] LATERAL MYOCARDIAL INFARCTION , OF INDETERMINATE AGE [40+ ms Q WAVE AND/OR ST/T ABNORMALITY IN I/aVL/V5/V6] MODERATE T-WAVE ABNORMALITY, CONSIDER INFERIOR ISCHEMIA [-0.1+ mV T WAVE IN II/aVF] No previous ECG available for comparison /store/S0/[id number]/ecg/[id number]
--- NOTE | 2024-05-22 14:37 | ESPR_ITS ---
Documentation for date of: 05/22/24 Subjective Subjective Interval history: Patient seen today at the bedside fine awake, alert, oriented x 3. No overnight events reported. Vital signs stable at this time. Patient's pain has moved from abdomen to epigastric area and lower chest, ordered EKG, ordered tropes as patient has not been on Coumadin since admission due to large anterior wall hematoma. INR normalized. General surgery Dr Naveen Boudreaux recommend continuing warm compresses once pain has resolved patient is cleared for discharge from his standpoint. Exam Vital Signs Temp Pulse Resp BP Pulse Ox O2 Del Method 96.4 F L 82 18 117/63 97 Room Air 05/22/24 12:00 05/22/24 12:00 05/22/24 12:00 05/22/24 12:00 05/22/24 12:00 05/22/24 12:00 Narrative Exam Physical Exam GENERAL: NAD, AAOx3 HEENT: Moist mucosa. Eyes open, symmetrical, & clear CARDIO: Heart RRR, no obvious murmurs PULM: No noted coughing/dyspnea CTA B/L, no R/W/R GI: Abdomen soft, nondistended, some tenderness of RLQ. BSx4 SKIN/MSK/EXT: No wounds/rashes/edema/amputations, no pain on palpation. Pedal pulses present B/L NEURO: AAOx3, no focal neuro deficits, able to move all 4 extremities Objective Labs 05/22/24 05:50 05/22/24 05:50 Labs: Laboratory Results - last 24 hr 05/22/24 05:50 WBC 6.4 RBC 3.37 L Hgb 9.5 L Hct 29.1 L MCV 86 MCH 28.2 MCHC 32.6 RDW Std Deviation 46.6 H Plt Count 181 Neut % (Auto) 69 Lymph % (Auto) 17 [place] % (Auto) 12 Eos % (Auto) 2 Baso % (Auto) 0 Neut # (Auto) 4.4 Lymph # (Auto) 1.1 [place] # (Auto) 0.8 Eos # (Auto) 0.1 Baso # (Auto) 0.0 Immature Gran # (Auto) 0.02 H Absolute Nucleated RBC 0.00 Immature Gran % 0 Nucleated RBC % 0 PT 12.9 H INR 1.2 Sodium 141 Potassium 4.1 D Chloride 104 Carbon Dioxide 31.3 H Anion Gap 6 L BUN 13 Creatinine 0.7 Estim Creat Clear Calc 78.4 eGFR > 60 BUN/Creatinine Ratio 19 Glucose 103 Calculated Osmolality 281 Calcium 9.1 Quality Measures Quality Measures none Advance care planning discussed with:: patient Assessment & Plan Assessment Current Active Medications: Generic Name Dose Route Start Last Admin Trade Name Freq PRN Reason Stop Dose Admin Acetaminophen 650 mg 05/22/24 11:56 Acetaminophen 325 Mg Tablet PO 06/19/24 19:53 Q6H PRN Fever >101.5 Atorvastatin Calcium 20 mg 05/21/24 21:00 05/21/24 22:02 Atorvastatin Calcium 20 Mg Tablet PO 06/20/24 20:59 20 mg HS FLO Administration Protocol Calcium Carbonate 600 mg 05/21/24 21:00 05/22/24 09:27 Calcium Carbonate 600 Mg Tablet PO 06/20/24 20:59 600 mg BID FLO Administration Carvedilol 6.25 mg 05/21/24 21:00 05/22/24 09:26 Carvedilol 3.125 Mg Tablet PO 06/20/24 20:59 6.25 mg BID FLO Administration Digoxin 0.125 mg 05/21/24 21:00 05/21/24 21:59 Digoxin 0.125 Mg Tablet PO 06/20/24 20:59 0.125 mg HS FLO Administration Furosemide 20 mg 05/22/24 09:00 05/22/24 09:27 Furosemide 20 Mg Tablet PO 06/21/24 08:59 20 mg QDAY FLO Administration Losartan Potassium 100 mg 05/22/24 09:00 05/22/24 09:26 Losartan Potassium 25 Mg Tablet PO 06/21/24 08:59 100 mg QDAY FLO Administration Magnesium Hydroxide 30 ml 05/20/24 19:54 Milk Of Magnesia Susp 30 Ml Udc PO 06/19/24 19:53 QDAY PRN CONSTIPATION Protocol Meloxicam 15 mg 05/22/24 09:00 05/22/24 09:27 Meloxicam 7.5 Mg Tablet PO 06/21/24 08:59 15 mg QDAY FLO Administration Home Medication- 1,000 mg 05/21/24 21:00 05/22/24 10:38 Please Speak With PO 06/20/24 20:59 Not Given Patient Caregiver To BID FLO Have Rx Brought To [facility] Ondansetron HCl 4 mg 05/20/24 19:54 Ondansetron Inj 2 Mg/Ml Inj 2 Ml IV 06/19/24 19:53 Q6H PRN NAUSEA OR VOMITING Protocol Oxycodone/Acetaminophen 1 tab 05/21/24 14:17 05/22/24 12:55 Oxycodone/Apap 5/325 Tablet PO 05/26/24 14:16 1 tab Q4HR PRN Administration Pain (Scale Score 4-6) Pantoprazole Sodium 40 mg 05/22/24 09:00 05/22/24 09:28 Pantoprazole 40 Mg Tablet PO 06/21/24 08:59 40 mg BID FLO Administration Protocol Vitamin B Complex/Vit C/Folic Acid 1 tab 05/22/24 09:00 05/22/24 09:28 Vitamin B Complex Tablet PO 06/21/24 08:59 1 tab QDAY FLO Administration Vitamin D 400 iu 05/21/24 21:00 05/22/24 09:27 Cholecalciferol (Vitamin D3) 400 Iu Tablet PO 06/20/24 20:59 400 iu BID FLO Administration Plan 78yr old femlae with significant past medical history of Rheumatic Heart disease diagnosed at the age of 4, Chronic atrial fibrillation on warfarin 5mg, Hypertension, Hyperlipidemia, s/p right knee replacement, s/p right shoulder surgery ?reverse total shoulder arthroplasty presented to the hospital with chief complaints of abdominal pain since 1 day and admitted for large anterior abdominal wall hematoma. # Large right abdominal wall hematoma, while on warfarin therapy Patient presented with sudden onset of abdominal pain with tenderness since 1 day Denies any other bleeding manifestations On examination, severe tenderness with swelling noted in right lower quadrant and hypogastric areaLabs showed mild anemia 11.7, INR 1.7. CT abdomen showed large hematoma in right anterior abdominal wall measuring 10 x 5.2 x 17 cm General surgery examined patient will do conservative treatmetn at this time if hematoma does not resolve patient may need incision and drainage of hematoma Dr Hodge recommends once patient's abdominal pain has resolved she is able to be discharged from his standpoint. -warm compressess -Hold warfarin at this time -Monitor for any bleeding manifestations -Follow-up with PT with INR -General surgery, Dr Hodge was consulted, appreciate recommendations # Acute blood loss anemia Hemoglobin in 02/25 is 12.5 Hemoglobin at the time of admission is 11.7 current Hg 9.5 -Monitor CBC -transfuse if Hg<7 # Chronic atrial fibrillation on warfarin # History of rheumatic heart disease #Hypertension Patient is following with director corporate security Dr. Mock Patient endorsed that she is compliant with warfarin intake and warfarin checks Recent INR that she know of is 1.7. Patient is using warfarin as she could not afford Eliquis Patient is using carvedilol, furosemide and digoxin at home - Warfarin on HOLD - on Carvedilol 6.25mg BID - on digoxin 125mcg PO HS - on losartan 100mg qday - on lasix 20mg qday # Hyperlipidemia Lipid panel done on 04/27 showed cholesterol 214, HDL 105 -on atorvastatin 20mg HS Case discussed with my attending Dr. Sandra Shah MD PGY-1 Disposition: Medsurg Fluids: None Feeding: Cardiac diet Thrombo prophylaxis: SCDs Gastric Ulcer prophylaxis: none CODE STATUS: DNI Attending Provider Attestation/Addendum Tanesha Boudreaux, , attest that I was physically present for the torres portions of the service and evaluated the patient with the resident and I reviewed and discussed the case with the resident and agree with the resident's findings and plans of care as documented above Patient seen and evaluated this AM. She states that pain is slightly more pronounced today, but she feels that the hematoma sight is softer and smaller. Will continue with warm compresses. Patient noted to be bradycardic, will reduce carvedilol to 3.125mg PO BID. Patient report some epigastric pain, will repeat troponin and EKG.
[2024-05-22 15:32] LABS: Troponin I < 0.020 ng/mL (0.0-0.045)
[2024-05-22] MEDS: DIGOXIN 0.125 MG TABLET PO (21:50)
[2024-05-22] MEDS: ATORVASTATIN CALCIUM 20 MG TABLET PO (21:51)
[2024-05-23] VITALS: BP 112/68; PULSE 69; RESP 18; TEMP 36.6; O2SAT 94
[2024-05-23] MEDS: oxyCODONE/APAP 5/325 TABLET 1 TAB PO ×2 (00:54→11:10)
[2024-05-23 04:00] VITALS: BP 122/59; PULSE 73; RESP 18; TEMP 36.3; O2SAT 95
[2024-05-23 05:31] LABS: Basophils % (Auto) 1 % (0-2.5); Eosinophils # (Auto) 0.2 Thou/mm3 (0.0-0.5); Eosinophils % (Auto) 2 % (0-10); Hematocrit 28.6 % (36.0-46.0); Hemoglobin 9.3 g/dL (12.0-16.0); Immature Granulocytes % (Auto) 0 % (0-0); Immature Granulocytes Auto 0.02 Thou/mm3 (0.00-0.00); Lymphocytes # (Auto) 1.4 Thou/mm3 (1.0-4.8); Lymphocytes % (Auto) 20 % (10-50); Mean Corpuscular HGB Conc 32.5 g/dl (31.0-37.0); Mean Corpuscular Hemoglobin 27.7 pg (25.0-35.0); Mean Corpuscular Volume 85 fL (80-100); Monocytes # (Auto) 0.8 Thou/mm3 (0.0-0.8); Monocytes % (Auto) 11 % (0-12); Neutrophils # (Auto) 4.7 Thou/mm3 (1.8-7.7); Neutrophils % (Auto) 66 % (37-80); Nucleated Red Blood Cell % 0 /100 WBC (0); Platelet Count 195 Thou/mm3 (140-440); RDW Standard Deviation 44.5 fL (36.4-46.3); Red Blood Count 3.36 Miln/mm3 (4.00-5.20)
[2024-05-23 05:36] LABS: INR 1.1 (0.9-1.3); Prothrombin Time 11.8 Seconds (9.0-12.2)
[2024-05-23 06:01] VITALS: PULSE 36
--- NOTE | 2024-05-23 06:01 | PC.NURSE ---
HR went down to 36 ( not sustaining) Dr. Rainey was made aware, no new orders for pt at this time.
--- NOTE | 2024-05-23 06:04 | PC.NURSE ---
Pt's HR went down to 36 not sustaining, pt stated that she was sleeping and that web content writer woke her up when i got in the room to check up on her. Pt denies any chest pain or discomfort at this time, Dr. Rainey was made aware. No new orders for patient at this time.
[2024-05-23 06:15] LABS: Anion Gap 7 (7-16); BUN/Creatinine Ratio 17 Ratio (12-20); Blood Urea Nitrogen 12 mg/dL (9-23); Calcium 9.2 mg/dL (8.3-10.6); Carbon Dioxide 29.5 mMol/L (20.0-31.0); Chloride 104 mMol/L (98-107); Creatinine (Component) 0.7 mg/dL (0.6-1.3); Estimated Creatinine Clearance 78.4 mL/min (>60); Glucose 101 mg/dL (74-106); Osmolality,Calculated 279 (275-295); Sodium 140 mMol/L (136-145); eGFR > 60 See Note
[2024-05-23 08:00] VITALS: BP 130/72; PULSE 96; RESP 17; TEMP 36.5; O2SAT 97
[2024-05-23 08:49] VITALS: BP 130/72; PULSE 96
[2024-05-23] MEDS: carVEDILOL 3.125 MG TABLET PO (08:49)
[2024-05-23] MEDS: Furosemide 20 MG TABLET PO (08:49)
[2024-05-23] MEDS: CALCIUM CARBONATE 600 MG TABLET PO (08:49)
[2024-05-23] MEDS: LOSARTAN POTASSIUM 25 MG TABLET 100 MG PO (08:49)
[2024-05-23] MEDS: VITAMIN B COMPLEX TABLET 1 TAB PO (08:50)
[2024-05-23] MEDS: MELOXICAM 7.5 MG TABLET 15 MG PO (08:50)
[2024-05-23] MEDS: CHOLECALCIFEROL (Vitamin D3) 400 IU TABLET PO (08:50)
[2024-05-23] MEDS: PANTOPRAZOLE 40 MG TABLET PO (08:50)
--- NOTE | 2024-05-23 09:58 | PD.SURPROG ---
Documentation for date of: 05/23/24 Subjective Subjective Narrative: Patient is seen and examined. She is feeling much better, her pain is improving Exam Vital Signs Temp Pulse Resp BP Pulse Ox O2 Del Method 97.7 F 96 17 130/72 97 Room Air 05/23/24 08:00 05/23/24 08:49 05/23/24 08:00 05/23/24 08:49 05/23/24 08:00 05/23/24 08:00 Constitutional Constitutional: no acute distress Routine Abdominal Exam Abdominal: Present soft, normoactive bowel sounds and tenderness (Minimal tenderness to deep palpation, no rebound tenderness or guarding); Absent distended Assessment & Plan Assessment Additional comments: Right rectus sheath hematoma improving and her hemoglobin remained stable Plan Patient is stable to be discharged from surgical standpoint. Hold Coumadin for another 3 days then may resume.
[2024-05-23 12:00] VITALS: BP 129/77; PULSE 73; RESP 17; TEMP 36.1; O2SAT 95
--- NOTE | 2024-05-23 13:25 | ESPR_ITS ---
Documentation for date of: 05/23/24 Subjective Subjective Interval history: Patient seen at bedside today. Significant improvement in patient's hematoma and was evaluated by general surgery who cleared the patient for discharge. Patient states that she does have pain when she gets up to use the restroom and the pain takes a while to subside. Still requiring p.o. pain meds. Counseled to do hold physical therapy for for at least 1 week to prevent exacerbation of the hematoma. Also counseled to follow-up with cardiology in regards to resumption of her Coumadin. Exam Vital Signs Temp Pulse Resp BP Pulse Ox O2 Del Method 97.0 F 73 17 129/77 95 Room Air 05/23/24 12:00 05/23/24 12:00 05/23/24 12:00 05/23/24 12:00 05/23/24 12:00 05/23/24 12:00 Narrative Exam Physical Exam GENERAL: NAD, AAOx3 HEENT: Moist mucosa. Eyes open, symmetrical, & clear CARDIO: Heart RRR, no obvious murmurs PULM: No noted coughing/dyspnea CTA B/L, no R/W/R GI: Abdomen soft, nondistended, some tenderness of RLQ but improving. BSx4 SKIN/MSK/EXT: No wounds/rashes/edema/amputations, no pain on palpation. Pedal pulses present B/L NEURO: AAOx3, no focal neuro deficits, able to move all 4 extremities Objective Labs 05/23/24 05:19 05/23/24 05:19 Labs: Laboratory Results - last 24 hr 05/22/24 05/23/24 14:58 05:19 WBC 7.0 RBC 3.36 L Hgb 9.3 L Hct 28.6 L MCV 85 MCH 27.7 MCHC 32.5 RDW Std Deviation 44.5 Plt Count 195 Neut % (Auto) 66 Lymph % (Auto) 20 [place] % (Auto) 11 Eos % (Auto) 2 Baso % (Auto) 1 Neut # (Auto) 4.7 Lymph # (Auto) 1.4 [place] # (Auto) 0.8 Eos # (Auto) 0.2 Baso # (Auto) 0.0 Immature Gran # (Auto) 0.02 H Absolute Nucleated RBC 0.00 Immature Gran % 0 Nucleated RBC % 0 PT 11.8 INR 1.1 Sodium 140 Potassium 4.0 Chloride 104 Carbon Dioxide 29.5 Anion Gap 7 BUN 12 Creatinine 0.7 Estim Creat Clear Calc 78.4 eGFR > 60 BUN/Creatinine Ratio 17 Glucose 101 Calculated Osmolality 279 Calcium 9.2 Troponin I < 0.020 Quality Measures Quality Measures none Advance care planning discussed with:: other Assessment & Plan Assessment Current Active Medications: Generic Name Dose Route Start Last Admin Trade Name Freq PRN Reason Stop Dose Admin Acetaminophen 650 mg 05/22/24 11:56 Acetaminophen 325 Mg Tablet PO 06/19/24 19:53 Q6H PRN Fever >101.5 Atorvastatin Calcium 20 mg 05/21/24 21:00 05/22/24 21:51 Atorvastatin Calcium 20 Mg Tablet PO 06/20/24 20:59 20 mg HS FLO Administration Protocol Calcium Carbonate 600 mg 05/21/24 21:00 05/23/24 08:49 Calcium Carbonate 600 Mg Tablet PO 06/20/24 20:59 600 mg BID FLO Administration Carvedilol 3.125 mg 05/22/24 21:00 05/23/24 08:49 Carvedilol 3.125 Mg Tablet PO 06/21/24 20:59 3.125 mg BID FLO Administration Digoxin 0.125 mg 05/21/24 21:00 05/22/24 21:50 Digoxin 0.125 Mg Tablet PO 06/20/24 20:59 0.125 mg HS FLO Administration Furosemide 20 mg 05/22/24 09:00 05/23/24 08:49 Furosemide 20 Mg Tablet PO 06/21/24 08:59 20 mg QDAY FLO Administration Losartan Potassium 100 mg 05/22/24 09:00 05/23/24 08:49 Losartan Potassium 25 Mg Tablet PO 06/21/24 08:59 100 mg QDAY FLO Administration Magnesium Hydroxide 30 ml 05/20/24 19:54 Milk Of Magnesia Susp 30 Ml Udc PO 06/19/24 19:53 QDAY PRN CONSTIPATION Protocol Meloxicam 15 mg 05/22/24 09:00 05/23/24 08:50 Meloxicam 7.5 Mg Tablet PO 06/21/24 08:59 15 mg QDAY FLO Administration Home Medication- 1,000 mg 05/21/24 21:00 05/23/24 08:50 Please Speak With PO 06/20/24 20:59 Not Given Patient Caregiver To BID FLO Have Rx Brought To [facility] Ondansetron HCl 4 mg 05/20/24 19:54 Ondansetron Inj 2 Mg/Ml Inj 2 Ml IV 06/19/24 19:53 Q6H PRN NAUSEA OR VOMITING Protocol Oxycodone/Acetaminophen 1 tab 05/21/24 14:17 05/23/24 11:10 Oxycodone/Apap 5/325 Tablet PO 05/26/24 14:16 1 tab Q4HR PRN Administration Pain (Scale Score 4-6) Pantoprazole Sodium 40 mg 05/22/24 09:00 05/23/24 08:50 Pantoprazole 40 Mg Tablet PO 06/21/24 08:59 40 mg BID FLO Administration Protocol Vitamin B Complex/Vit C/Folic Acid 1 tab 05/22/24 09:00 05/23/24 08:50 Vitamin B Complex Tablet PO 06/21/24 08:59 1 tab QDAY FLO Administration Vitamin D 400 iu 05/21/24 21:00 05/23/24 08:50 Cholecalciferol (Vitamin D3) 400 Iu Tablet PO 06/20/24 20:59 400 iu BID FLO Administration Plan 78yr old femlae with significant past medical history of Rheumatic Heart disease diagnosed at the age of 4, Chronic atrial fibrillation on warfarin 5mg, Hypertension, Hyperlipidemia, s/p right knee replacement, s/p right shoulder surgery ?reverse total shoulder arthroplasty presented to the hospital with chief complaints of abdominal pain since 1 day and admitted for large anterior abdominal wall hematoma. # Large right abdominal wall hematoma, while on warfarin therapy Patient presented with sudden onset of abdominal pain with tenderness since 1 day Denies any other bleeding manifestations On examination, severe tenderness with swelling noted in right lower quadrant and hypogastric areaLabs showed mild anemia 11.7, INR 1.7. CT abdomen showed large hematoma in right anterior abdominal wall measuring 10 x 5.2 x 17 cm General surgery examined patient will do conservative treatmetn at this time if hematoma does not resolve patient may need incision and drainage of hematoma Dr Hodge recommends once patient's abdominal pain has resolved she is able to be discharged from his standpoint. -warm compressess -Hold warfarin at this time and resume after following up with cardiology in the outpatient setting -Monitor for any bleeding manifestations -Follow-up with PT with INR -General surgery, Dr Hodge was consulted, who states that the patient is stable for discharge from surgical standpoint # Acute blood loss anemia Hemoglobin in 02/25 is 12.5 Hemoglobin at the time of admission is 11.7 current Hg 9.5 -Monitor CBC -transfuse if Hg<7 # Chronic atrial fibrillation on warfarin # History of rheumatic heart disease #Hypertension Patient is following with shotgun shell assembly machine adjuster Dr. Mock Patient endorsed that she is compliant with warfarin intake and warfarin checks Recent INR that she know of is 1.7. Patient is using warfarin as she could not afford Eliquis Patient is using carvedilol, furosemide and digoxin at home - Warfarin on HOLD - on Carvedilol 6.25mg BID, but the dose will be reduced to 3.125 mg twice daily due to patient's blood pressure becoming hypotensive - on digoxin 125mcg PO HS - on losartan 100mg qday - on lasix 20mg qday # Hyperlipidemia Lipid panel done on 04/27 showed cholesterol 214, HDL 105 -on atorvastatin 20mg HS Case discussed with my attending Dr. Sandra Ortez M.D. PGY-3 Disposition: Medsurg Fluids: None Feeding: Cardiac diet Thrombo prophylaxis: SCDs Gastric Ulcer prophylaxis: none CODE STATUS: DNI Attending Provider Attestation/Addendum Tanesha Boudreaux DO, attest that I was physically present for the torres portions of the service and evaluated the patient with the resident and I reviewed and discussed the case with the resident and agree with the resident's findings and plans of care as documented above Patient seen and evaluated this AM. She reports mild pain after getting up from bed. She reports pain only with changes of position, but has been improved. Size of hematoma appears to have improved as well. Will re-evaluate in afternoon. If patient condition improves, consider discharge this afternoon if pain controlled. No discoloration overlying skin, mild firmness and tenderness to deep palpation to the right of umbilicus.
--- NOTE | 2024-05-23 13:33 | PD.RESDS ---
Planned Discharge Date 05/23/24 DS: Providers Provider Date of admission: 05/20/24 19:54 Primary care physician: Slim Morales MD Admitting Provider: Talat Fernandez MD Attending Provider on Admission: Tanesha Flores DO Consults: 05/20/24 20:08 Consult to General Surgery Stat Comment: hematoma in abdominal wall Consulting Provider: Elsie Hodge 05/20/24 23:14 [facility] Referral - Knowledge Deficit Routine Comment: Positive screening for knowledge deficit needs. 05/21/24 09:12 Consult to Cardiology Stat Comment: Consulting Provider: Sathish Mock Attending Provider on DC: Rona Ortez MD Discharging Provider: Rona Ortez MD DS: Diagnosis Problem List Completed Was Problem List Reviewed/Reconciled?: Yes Hospital Course Hospital Course Hospital course: Ms. Rivera is a 78-year-old female with past medical history of rheumatic heart disease, chronic A-fib on warfarin 5 mg daily, hypertension, hyperlipidemia, right shoulder pain with arthroplasty who came to [facility] with a chief complaint of abdominal pain. Patient was at physical therapy receiving rehabilitative services for her shoulder and upon completion of her treatment she went to get up and felt a sudden sharp pain in her right lower quadrant. Patient went home and took Tylenol but was unable to tolerate the pain so she came to the emergency department where a CT abdomen was ordered and revealed that the patient had a large hematoma on the right anterior abdominal wall measuring 10 x 5.2 x [address] Hodge was consulted who recommended to hold patient's Coumadin and to continue with warm compresses with the goal of avoiding surgical intervention to drain the hematoma. Patient continued with warm compresses and Coumadin was held and pain was well-controlled with oxycodone. Cardiology was also consulted and patient's hse specialist Dr. Mock agreed with holding Coumadin due to the hematoma and recommended to continue with her antiarrhythmic medications. Over the course of a few days with warm compresses the patient's hematoma improved and pain had also improved. Patient primarily had pain upon movement and was able to manage with oral pain medications. Once patient was medically cleared for discharge by general surgery patient was sent home with oral opioid medications for pain management. Patient is recommended to follow-up with her hse specialist this week to resume her Coumadin for atrial fibrillation. If her pain worsens or the hematoma appears to increase in size we recommend to follow-up with emergency department or general surgery Dr. Hodge's office. Plan of care discussed with supervising attending Dr. Sandra Ortez M.D. PGY-3 # Large right abdominal wall hematoma # Chronic anticoagulation on Warfarin Patient presented with sudden onset of abdominal pain with tenderness since 1st day Denies any other bleeding manifestations On examination, severe tenderness with swelling noted in right lower quadrant and hypogastric areaLabs showed mild anemia 11.7, INR 1.7. CT abdomen showed large hematoma in right anterior abdominal wall measuring 10 x 5.2 x 17 cm General surgery examined patient will do conservative treatmetn at this time if hematoma does not resolve patient may need incision and drainage of hematoma Dr Hodge recommends once patient's abdominal pain has resolved she is able to be discharged from his standpoint. -warm compressess -Hold warfarin at this time -Monitor for any bleeding manifestations -Follow-up with PT with INR -General surgery, Dr Hodge was consulted, appreciate recommendations # Acute blood loss anemia Hemoglobin in 02/25 is 12.5 Hemoglobin at the time of admission is 11.7 current Hg 9.5 -Monitor CBC -transfuse if Hg<7 # Chronic atrial fibrillation on warfarin # History of rheumatic heart disease #Hypertension Patient is following with hse specialist Dr. Mock Patient endorsed that she is compliant with warfarin intake and warfarin checks Recent INR that she know of is 1.7. Patient is using warfarin as she could not afford Eliquis Patient is using carvedilol, furosemide and digoxin at home - Warfarin on HOLD - on Carvedilol 6.25mg BID - on digoxin 125mcg PO HS - on losartan 100mg qday - on lasix 20mg qday # Hyperlipidemia Lipid panel done on 04/27 showed cholesterol 214, HDL 105 -on atorvastatin 20mg HS Disposition: Medsurg Fluids: None Feeding: Cardiac diet Thrombo prophylaxis: SCDs Gastric Ulcer prophylaxis: none CODE STATUS: DNI Status at Discharge Overall status at discharge: patient is progressing back to baseline Time Spent with Patient Time attestation: Total time spent providing and/or coordinating discharge services: Time spent: Greater than 30 minutes Exam Vital Signs Temp Pulse Resp BP Pulse Ox O2 Del Method 97.0 F 73 17 129/77 95 Room Air 01/19/25 12:00 05/23/24 12:00 05/23/24 12:00 05/23/24 12:00 05/23/24 12:00 05/23/24 12:00 Narrative Exam Physical Exam GENERAL: NAD, AAOx3 HEENT: Moist mucosa. Eyes open, symmetrical, & clear CARDIO: Heart RRR, no obvious murmurs PULM: No noted coughing/dyspnea CTA B/L, no R/W/R GI: Abdomen soft, nondistended, some tenderness of RLQ but improving. BSx4 SKIN/MSK/EXT: No wounds/rashes/edema/amputations, no pain on palpation. Pedal pulses present B/L NEURO: AAOx3, no focal neuro deficits, able to move all 4 extremities Discharge Plan Plan Patient Disposition: HOME (Self Care) Patient condition on transfer: Stable Care Plan Goals: Recommended to follow up with PCP within 1 week of discharge Recommended to follow up with Mortgage Loan Processing Clerk, Dr. Mock in regards to anticoagulation with warfarin within 1 week of discharge. Carvedilol dose decreased from 6.125mg twice a day to 3.125mg twice a day. If symptoms recur or worsen patient instructed to return to the ED. Patient will be sent home on a 3-day course of oxycodone for management of her pain Prescriptions/Referrals Prescriptions/Med Rec: New oxycodone-acetaminophen 5-325 mg tablet 1 tab PO Q6H MDD 20mg PRN (Reason: pain) Qty: 12 0RF carvedilol 3.125 mg Tablet 3.125 mg PO BID 30 Days Qty: 60 0RF Continued lysine 1,000 mg Tablet 1,000 mg PO BID calcium carbonate-vitamin D3 600 mg-5 mcg (200 unit) Tablet 1 tab PO BID simvastatin 40 mg tablet 40 mg PO HS Patient Comments: TAKE 1 TABLET BY MOUTH ONCE DAILY digoxin 125 mcg (0.125 mg) tablet 125 mcg PO HS Patient Comments: TAKE 1 TABLET BY MOUTH ONCE DAILY furosemide 20 mg tablet 20 mg PO QDAY Patient Comments: TAKE 1 TABLET BY MOUTH ONCE DAILY vitamin B complex Capsule 1 cap PO QDAY meloxicam 15 mg tablet 15 mg PO QDAY Patient Comments: TAKE 1 TABLET BY MOUTH ONCE DAILY omeprazole 40 mg capsule,delayed release(DR/EC) 40 mg PO QDAY Patient Comments: TAKE 1 CAPSULE BY MOUTH ONCE DAILY BEFORE A MEAL losartan 100 mg tablet 100 mg PO QDAY Patient Comments: TAKE 1 TABLET BY MOUTH ONCE DAILY Held warfarin 5 mg tablet 5 mg PO HS Hold Instructions: Resume on 05/29/24. Please hold taking warfarin until your appointment with your hse specialist Dr. Mock, to be resumed per cardiology recommendations. Patient Comments: TAKE 1 TABLET BY MOUTH ONCE DAILY Discontinued carvedilol 6.25 mg tablet 6.25 mg PO BID Patient Comments: TAKE 1 TABLET BY MOUTH TWICE DAILY oxycodone-acetaminophen 5-325 mg tablet 1 tab PO Q4HR PRN (Reason: Pain (Scale Score 4-6)) Patient Comments: TAKE 1 TABLET BY MOUTH EVERY 4 HOURS NEEDED FOR PAIN Referrals: Slim Morales MD [Primary Care Provider] - Patient/Caregiver Discharge Instructions Other Discharge Activity Instructions:: Recommended to follow up with PCP within 1 week of discharge Recommended to follow up with Mortgage Loan Processing Clerk, Dr. Mock in regards to anticoagulation with warfarin within 1 week of discharge. Carvedilol dose decreased from 6.125mg twice a day to 3.125mg twice a day. If symptoms recur or worsen patient instructed to return to the ED. Patient will be sent home on a 3-day course of oxycodone for management of her pain Education Materials: ED Hematoma Print Language: Faroese Stand Alone Forms: [facility] Award Info., Patient Portal Info Letter Discharge Order Discharge Orders: Discharge (Routine); Ordered 05/23/24 Ordered By: Rona Ortez Quality Discharge Quality Measures none
== END 2024-05-23 14:30 | disposition home or self-care (01) | DRG 605 ==
LOC: SERX 21:04 → SERHOLD 21:44 → S3NX 22:36
PROVIDERS: Emergency Medicine; Nurse Practitioner Primary Care; Student in an Organized Health Care Education/Training Program; Admitting Provider Internal Medicine; Emergency Provider Emergency Medicine; PCP Internal Medicine; Visit Provider Internal Medicine
DX: S30.1XXA Contusion of abdominal wall, initial encounter (principal); I48.20 Chronic atrial fibrillation, unspecified; D62 Acute posthemorrhagic anemia; Z96.651 Presence of right artificial knee joint; E78.5 Hyperlipidemia, unspecified; I50.9 Heart failure, unspecified; Z79.01 Long term (current) use of anticoagulants; I09.9 Rheumatic heart disease, unspecified; I11.0 Hypertensive heart disease with heart failure; R79.1 Abnormal coagulation profile; I95.9 Hypotension, unspecified; X58.XXXA Exposure to other specified factors, initial encounter; Z96.611 Presence of right artificial shoulder joint
CPT/HCPCS: 36415; 74177; 80048; 80053; 81001; 83690; 84484; 85025; 85610; 85730; 93005; 93225; A4649; J2270; J2405; J3430; Q9967; A9270

== ENCOUNTER → 2024-06-09 | Outpatient (CLI) | payer MEDICARE, SELFPAY ==
--- NOTE | 2024-06-09 15:30 | XR_ITS ---
Examination: CT abdomen without contrast. Coronal 2-D reconstructions. Sagittal 2-D reconstructions. Date and time of exam:MRA 2024 1541 hours Comparison May 20, 2024 CTDI: vol (mGy): 9.72 DLP: (mGycm): 308 Right lower abdominal pain beginning April 2024, post injury, large hematoma in the right lower anterior abdominal wall at 10 x 5.2 x [address] study May 20, 2024 Technique: Axial images of the abdomen have been obtained, 3 mm slice thickness, without intravenous contrast 2-D sagittal coronal reconstructions Low dose protocols were performed. One or more of the following dose reduction techniques were used; automated exposure control, adjustment of the mA and/or KV according to patient size, use of iterative reconstruction technique. Findings: No pneumothorax No liver splenic or renal laceration, no perinephric hematoma Distended gallbladder with gallstones Abdominal aortic calcification no aneurysmal dilatation No bowel obstruction Partial visualization and marked decrease in size of anterior right abdominal wall hematoma, current mediolateral dimension 6.2 cm AP dimension 2.6 cm, the entire hematoma is not visualized IMPRESSION: Partial visualization smaller anterior right abdominal wall pelvic hematoma
== END | disposition home or self-care (01) ==
LOC: CCTX 15:08
PROVIDERS: Referring Provider Internal Medicine; Visit Provider Internal Medicine
DX: S30.0XXA Contusion of lower back and pelvis, initial encounter (principal); X58.XXXA Exposure to other specified factors, initial encounter
CPT/HCPCS: 74150

== ENCOUNTER → 2024-06-29 | Outpatient (CLI) | payer MEDICARE, SELFPAY ==
[2024-06-29 11:41] LABS: INR 1.2 (0.9-1.3); Prothrombin Time 12.9 Seconds (9.0-12.2)
== END | disposition home or self-care (01) ==
LOC: COPL 10:58
PROVIDERS: PCP Internal Medicine; Referring Provider Internal Medicine Cardiovascular Disease; Visit Provider Internal Medicine Cardiovascular Disease
DX: I48.20 Chronic atrial fibrillation, unspecified (principal); I11.0 Hypertensive heart disease with heart failure; I50.9 Heart failure, unspecified
CPT/HCPCS: 36415; 85610

== ENCOUNTER → 2024-07-14 | Outpatient (CLI) | payer MEDICARE, SELFPAY ==
[2024-07-14 12:50] LABS: Prothrombin Time 20.8 Seconds (9.0-12.2)
== END | disposition home or self-care (01) ==
LOC: COPL 11:43
PROVIDERS: PCP Internal Medicine; Referring Provider Internal Medicine Cardiovascular Disease; Visit Provider Internal Medicine Cardiovascular Disease
DX: I48.20 Chronic atrial fibrillation, unspecified (principal); I11.0 Hypertensive heart disease with heart failure; I50.9 Heart failure, unspecified
CPT/HCPCS: 36415; 85610

== ENCOUNTER → 2024-07-23 | Outpatient (CLI) | payer MEDICARE, SELFPAY ==
--- NOTE | 2024-07-23 15:15 | XR_ITS ---
Examination: Screening digital mammography, bilateral Computer aided detection 3-D breast Tomosynthesis, bilateral Date and time of exam: July 23, 2024 1511 hours Compared to mammograms dating to 01/28/2008 Indication: Screening Technique: Nonmagnified MLO, CC views of the breasts to been obtained, reconstructed from 3-D Tomosynthesis images. R2 computer aided detection program utilized for evaluation of suspicious masses and/or abnormal calcifications. 3-D Tomosynthesis images obtained. Findings: Scattered areas of fibroglandular density 6 mm focal asymmetry right breast CC view 7.3 cm from the nipple Benign calcifications Impression: BI-RADS Category 0: Incomplete: Need additional imaging evaluation 6 mm focal asymmetry right breast CC view, 7.3 cm from the nipple, recommend follow-up spot tomographic CC view, spot tomographic MLO view upper right breast, right breast sonography to complete the workup
== END | disposition home or self-care (01) ==
LOC: CDIM 15:00
PROVIDERS: Referring Provider Internal Medicine; Visit Provider Internal Medicine
DX: Z12.31 Encounter for screening mammogram for malignant neoplasm of breast (principal); R92.8 Other abnormal and inconclusive findings on diagnostic imaging of breast; N64.89 Other specified disorders of breast
CPT/HCPCS: 77063; 77067

== ENCOUNTER → 2024-08-18 | Outpatient (CLI) | payer MEDICARE, SELFPAY ==
[2024-08-18 13:13] LABS: INR 1.8 (0.9-1.3); Prothrombin Time 18.7 Seconds (9.0-12.2)
== END | disposition home or self-care (01) ==
PROVIDERS: PCP Internal Medicine; Referring Provider Internal Medicine Cardiovascular Disease; Visit Provider Internal Medicine Cardiovascular Disease
DX: I48.20 Chronic atrial fibrillation, unspecified (principal)
CPT/HCPCS: 36415; 85610

== ENCOUNTER → 2024-09-22 | Outpatient (CLI) | payer MEDICARE, SELFPAY ==
[2024-09-22 11:43] LABS: INR 2.3 (0.9-1.3); Prothrombin Time 23.9 Seconds (9.0-12.2)
== END | disposition home or self-care (01) ==
LOC: COPL 10:19
PROVIDERS: PCP Family Medicine; Referring Provider Internal Medicine Cardiovascular Disease; Visit Provider Internal Medicine Cardiovascular Disease
DX: I48.20 Chronic atrial fibrillation, unspecified (principal)
CPT/HCPCS: 36415; 85610

== ENCOUNTER → 2024-10-12 | Outpatient (CLI) | payer MEDICARE, SELFPAY ==
--- NOTE | 2024-10-12 14:00 | XR_ITS ---
Examination: Breast ultrasound, unilateral, right complete Date and time of exam: October 12, 2024 1359 hours INDICATIONS: Mammogram July 23, 2024 6 mm focal asymmetry right breast 7.3 cm from the nipple Technique: Real-time caputo scale ultrasonographic imaging performed right breast including all 4 quadrants as well as nipple retroareolar and axillary region. Findings: No cystic or solid mass IMPRESSION: BI-RADS Category 1: Negative study
--- NOTE | 2024-10-12 14:30 | XR_ITS ---
Examination: Diagnostic digital mammography, unilateral, right Computer aided detection 3-D breast Tomosynthesis, unilateral Date and time of exam: October 12, 2024 1419 hours INDICATIONS: Mammogram July 23, 2024 6 mm focal asymmetry right breast CC view Technique: Nonmagnified MLO, CC views of the right breast have been obtained, reconstructed from 3-D Tomosynthesis images. R2 computer aided detection program utilized for evaluation of suspicious masses and/or abnormal calcifications. 3-D Tomosynthesis images obtained. Findings: Scattered areas of fibroglandular density Focal asymmetry is confirmed on the spot compression CC view right breast, 4 mm Impression: BI-RADS category 3: Probably benign findings One additional 6 month right mammogram follow-up is needed to document stability of focal asymmetry CC view right breast
== END | disposition home or self-care (01) ==
LOC: CDIM 13:35
PROVIDERS: PCP Family Medicine; Referring Provider Registered Nurse; Visit Provider Registered Nurse
DX: R92.321 Mammographic fibroglandular density, right breast (principal); N64.89 Other specified disorders of breast
CPT/HCPCS: 76641; 77061; 77065; G0279

== ENCOUNTER → 2024-10-27 | Outpatient (CLI) | payer MEDICARE, SELFPAY ==
[2024-10-27 13:30] LABS: INR 1.6 (0.9-1.3); Prothrombin Time 17.2 Seconds (9.0-12.2)
== END | disposition home or self-care (01) ==
LOC: COPL 12:30
PROVIDERS: PCP Family Medicine; Referring Provider Internal Medicine Cardiovascular Disease; Visit Provider Internal Medicine Cardiovascular Disease
DX: I48.20 Chronic atrial fibrillation, unspecified (principal)
CPT/HCPCS: 36415; 85610

== ENCOUNTER → 2024-11-01 | Outpatient (CLI) | payer MEDICARE, SELFPAY ==
[2024-11-01 13:45] LABS: INR 2.3 (0.9-1.3); Prothrombin Time 23.3 Seconds (9.0-12.2)
== END | disposition home or self-care (01) ==
LOC: COPL 11:49
PROVIDERS: PCP Family Medicine; Referring Provider Internal Medicine Cardiovascular Disease; Visit Provider Internal Medicine Cardiovascular Disease
DX: I48.20 Chronic atrial fibrillation, unspecified (principal)
CPT/HCPCS: 36415; 85610

== ENCOUNTER → 2024-11-25 | Outpatient (CLI) | payer MEDICARE, SELFPAY ==
[2024-11-25 12:33] LABS: INR 1.1 (0.9-1.3); Prothrombin Time 11.9 Seconds (9.0-12.2)
== END | disposition home or self-care (01) ==
LOC: COPL 11:09
PROVIDERS: PCP Family Medicine; Referring Provider Internal Medicine Cardiovascular Disease; Visit Provider Internal Medicine Cardiovascular Disease
DX: I48.20 Chronic atrial fibrillation, unspecified (principal)
CPT/HCPCS: 36415; 85610

== ENCOUNTER → 2024-12-03 | Outpatient (CLI) | payer MEDICARE, SELFPAY ==
[2024-12-03 12:36] LABS: INR 2.5 (0.9-1.3); Prothrombin Time 26.0 Seconds (9.0-12.2)
== END | disposition home or self-care (01) ==
LOC: COPL 11:28
PROVIDERS: PCP Family Medicine; Referring Provider Internal Medicine Cardiovascular Disease; Visit Provider Internal Medicine Cardiovascular Disease
DX: I48.20 Chronic atrial fibrillation, unspecified (principal)
CPT/HCPCS: 36415; 85610

== ENCOUNTER → 2024-12-09 | Outpatient (CLI) | payer MEDICARE, SELFPAY ==
[2024-12-09 09:35] LABS: Basophils # (Auto) 0.0 Thou/mm3 (0.0-0.2); Basophils % (Auto) 1 % (0-2.5); Eosinophils # (Auto) 0.2 Thou/mm3 (0.0-0.5); Eosinophils % (Auto) 3 % (0-10); Hematocrit 37.6 % (36.0-46.0); Hemoglobin 11.9 g/dL (12.0-16.0); Immature Granulocytes Auto 0.01 Thou/mm3 (0.00-0.00); Lymphocytes # (Auto) 1.6 Thou/mm3 (1.0-4.8); Lymphocytes % (Auto) 23 % (10-50); Mean Corpuscular HGB Conc 31.6 g/dl (31.0-37.0); Mean Corpuscular Hemoglobin 27.6 pg (25.0-35.0); Mean Corpuscular Volume 87 fL (80-100); Monocytes # (Auto) 0.5 Thou/mm3 (0.0-0.8); Monocytes % (Auto) 8 % (0-12); Neutrophils # (Auto) 4.8 Thou/mm3 (1.8-7.7); Neutrophils % (Auto) 67 % (37-80); Nucleated Red Blood Cell # 0.00 Thou/mm3 (0.00-0.00); Nucleated Red Blood Cell % 0 /100 WBC (0); Platelet Count 242 Thou/mm3 (140-440); RDW Standard Deviation 47.9 fL (36.4-46.3); Red Blood Count 4.31 Miln/mm3 (4.00-5.20); White Blood Count 7.2 Thou/mm3 (3.6-11.0)
[2024-12-09 10:00] LABS: Alanine Aminotransferase 10 U/L (10-49); Albumin, Serum 4.5 gm/dL (3.4-4.8); Albumin/Globulin Ratio 2.0 (1.2-2.2); Alkaline Phosphatase 87 U/L (46-116); Anion Gap 10 (7-16); Aspartate Amino Transferase 21 U/L (0-34); BUN/Creatinine Ratio 18 Ratio (12-20); Bilirubin,Total 0.6 mg/dL (0.3-1.2); Blood Urea Nitrogen 16 mg/dL (9-23); Calcium 9.4 mg/dL (8.3-10.6); Calcium (Corrected) 9.4 mg/dL (8.5-10.1); Carbon Dioxide 29.4 mMol/L (20.0-31.0); Cardiac Risk Estimate 2.2 RATIO (3.7-5.6); Chloride 106 mMol/L (98-107); Cholesterol 221 mg/dL (132-200); Creatinine (Component) 0.9 mg/dL (0.6-1.3); Globulin 2.2 gm/dL (2.3-3.5); Glucose 110 mg/dL (74-106); HDL Cholesterol 101 mg/dL (40-60); LDL Cholesterol,Calculated 98 mg/dL (0-130); Osmolality,Calculated 290 (275-295); Potassium 4.9 mMol/L (3.4-5.1); Sodium 145 mMol/L (136-145); Total Protein 6.7 gm/dL (5.7-8.2); Triglycerides 110 mg/dL (30-150); eGFR > 60 See Note
== END | disposition home or self-care (01) ==
LOC: COPL 08:39
PROVIDERS: PCP Family Medicine; Referring Provider Registered Nurse; Visit Provider Registered Nurse
DX: R79.89 Other specified abnormal findings of blood chemistry (principal); I10 Essential (primary) hypertension; E78.2 Mixed hyperlipidemia
CPT/HCPCS: 36415; 80053; 80061; 85025

== ENCOUNTER → 2025-01-10 | Outpatient (CLI) | payer MEDICARE, SELFPAY ==
[2025-01-10 14:56] LABS: INR 3.2 (0.9-1.3)
[2025-01-10 15:14] LABS: Prothrombin Time 32.4 Seconds (9.0-12.2)
== END | disposition home or self-care (01) ==
LOC: COPL 13:35
PROVIDERS: PCP Family Medicine; Referring Provider Internal Medicine Cardiovascular Disease; Visit Provider Internal Medicine Cardiovascular Disease
DX: I48.20 Chronic atrial fibrillation, unspecified (principal)
CPT/HCPCS: 36415; 85610

== ENCOUNTER → 2025-01-17 | Outpatient (CLI) | payer MEDICARE, SELFPAY ==
[2025-01-17 15:00] LABS: INR 3.3 (0.9-1.3)
[2025-01-17 15:10] LABS: Prothrombin Time 33.2 Seconds (9.0-12.2)
== END | disposition home or self-care (01) ==
LOC: COPL 13:38
PROVIDERS: PCP Family Medicine; Referring Provider Internal Medicine Cardiovascular Disease; Visit Provider Internal Medicine Cardiovascular Disease
DX: I48.20 Chronic atrial fibrillation, unspecified (principal)
CPT/HCPCS: 36415; 85610

== ENCOUNTER → 2025-01-25 | Outpatient (CLI) | payer MEDICARE, SELFPAY ==
[2025-01-25 15:04] LABS: INR 2.0 (0.9-1.3); Prothrombin Time 20.8 Seconds (9.0-12.2)
== END | disposition home or self-care (01) ==
LOC: COPL 13:53
PROVIDERS: PCP Family Medicine; Referring Provider Internal Medicine Cardiovascular Disease; Visit Provider Internal Medicine Cardiovascular Disease
DX: I48.20 Chronic atrial fibrillation, unspecified (principal)
CPT/HCPCS: 36415; 85610

== ENCOUNTER → 2025-03-08 | Outpatient (CLI) | payer MEDICARE, SELFPAY ==
[2025-03-08 11:57] LABS: INR 1.8 (0.9-1.3); Prothrombin Time 18.6 Seconds (9.0-12.2)
== END | disposition home or self-care (01) ==
LOC: COPL 10:54
PROVIDERS: PCP Family Medicine; Referring Provider Internal Medicine Cardiovascular Disease; Visit Provider Internal Medicine Cardiovascular Disease
DX: Z01.89 Encounter for other specified special examinations (principal)
CPT/HCPCS: 36415; 85610

== ENCOUNTER → 2025-04-14 | Outpatient (CLI) | payer MEDICARE, SELFPAY ==
--- NOTE | 2025-04-14 09:00 | XR_ITS ---
Examination: Breast ultrasound, unilateral, right complete Date and time of exam: April 14, 2025, 0910 hours INDICATIONS: Mammogram October 12, 2024 focal asymmetry spot compression cc view right breast 4 mm Technique: Real-time caputo scale ultrasonographic imaging performed right breast including all 4 quadrants as well as nipple retroareolar and axillary region. Findings: No cystic or solid mass IMPRESSION: BI-RADS Category 1: Negative study
--- NOTE | 2025-04-14 09:30 | XR_ITS ---
Examination: Diagnostic digital mammography, unilateral, right Computer aided detection 3-D breast Tomosynthesis, unilateral Date and time of exam: 04/14/2025, 9:04 a.m. Comparisons: July 22 25 October 2024 Indications: Short interval follow-up of focal asymmetry seen on prior exam Technique: Nonmagnified MLO, CC views of the right breast have been obtained, reconstructed from 3-D Tomosynthesis images. R2 computer aided detection program utilized for evaluation of suspicious masses and/or abnormal calcifications. 3-D Tomosynthesis images obtained. Technologist: Findings: There are scattered areas of fibroglandular density. No evidence of abnormal masses or suspicious calcifications. Previously described abnormality does not persist on spot compression views and represents superimposition of normal fibroglandular tissue. Impression: BI-RADS category 1: Negative findings (within normal) Recommend 1 year follow-up mammogram
== END | disposition home or self-care (01) ==
PROVIDERS: PCP Family Medicine; Referring Provider Registered Nurse; Visit Provider Registered Nurse
DX: R92.311 Mammographic fatty tissue density, right breast (principal)
CPT/HCPCS: 76641; 77061; 77065; G0279

== ENCOUNTER → 2025-04-20 | Outpatient (CLI) | payer MEDICARE, SELFPAY ==
[2025-04-20 09:48] LABS: Basophils # (Auto) 0.0 Thou/mm3 (0.0-0.2); Basophils % (Auto) 1 % (0-2.5); Eosinophils # (Auto) 0.2 Thou/mm3 (0.0-0.5); Eosinophils % (Auto) 2 % (0-10); Hematocrit 35.2 % (36.0-46.0); Hemoglobin 11.3 g/dL (12.0-16.0); Immature Granulocytes Auto 0.03 Thou/mm3 (0.00-0.00); Lymphocytes # (Auto) 1.2 Thou/mm3 (1.0-4.8); Lymphocytes % (Auto) 17 % (10-50); Mean Corpuscular HGB Conc 32.1 g/dl (31.0-37.0); Mean Corpuscular Hemoglobin 27.9 pg (25.0-35.0); Mean Corpuscular Volume 87 fL (80-100); Monocytes # (Auto) 0.6 Thou/mm3 (0.0-0.8); Monocytes % (Auto) 8 % (0-12); Neutrophils # (Auto) 5.1 Thou/mm3 (1.8-7.7); Neutrophils % (Auto) 72 % (37-80); Nucleated Red Blood Cell # 0.00 Thou/mm3 (0.00-0.00); Nucleated Red Blood Cell % 0 /100 WBC (0); Platelet Count 225 Thou/mm3 (140-440); RDW Standard Deviation 47.8 fL (36.4-46.3); Red Blood Count 4.05 Miln/mm3 (4.00-5.20); White Blood Count 7.0 Thou/mm3 (3.6-11.0)
[2025-04-20 10:03] LABS: Alanine Aminotransferase 10 U/L (10-49); Albumin, Serum 4.6 gm/dL (3.4-4.8); Alkaline Phosphatase 74 U/L (46-116); Anion Gap 12 (7-16); Aspartate Amino Transferase 23 U/L (0-34); BUN/Creatinine Ratio 18 Ratio (12-20); Bilirubin,Direct 0.2 mg/dL (0.0-0.3); Bilirubin,Total 0.7 mg/dL (0.3-1.2); Blood Urea Nitrogen 14 mg/dL (9-23); Calcium 9.1 mg/dL (8.3-10.6); Carbon Dioxide 27.3 mMol/L (20.0-31.0); Cardiac Risk Estimate 1.9 RATIO (3.7-5.6); Chloride 106 mMol/L (98-107); Cholesterol 183 mg/dL (132-200); Creatinine (Component) 0.8 mg/dL (0.6-1.3); Digoxin 0.7 ng/mL (0.8-2.0); Free T4 (Free Thyroxine) 1.07 ng/dL (0.89-1.76); Glucose 105 mg/dL (74-106); HDL Cholesterol 98 mg/dL (40-60); LDL Cholesterol,Calculated 70 mg/dL (0-130); Osmolality,Calculated 289 (275-295); Potassium 4.5 mMol/L (3.4-5.1); Sodium 145 mMol/L (136-145); Thyroid Stimulating Hormone 4.62 uIU/mL (0.55-4.78); Total Protein 7.1 gm/dL (5.7-8.2); Triglycerides 77 mg/dL (30-150); eGFR > 60 See Note
[2025-04-20 10:31] LABS: B-Type Natriuretic Peptide 182 pg/mL (0-100)
[2025-04-20 11:58] LABS: INR 1.7 (0.9-1.3); Prothrombin Time 17.0 Seconds (9.0-12.2)
== END | disposition home or self-care (01) ==
LOC: COPL 08:03
PROVIDERS: PCP Family Medicine; Referring Provider Internal Medicine Cardiovascular Disease; Visit Provider Internal Medicine Cardiovascular Disease
DX: I12.9 Hypertensive chronic kidney disease with stage 1 through stage 4 chronic kidney disease, or unspecified chronic kidney disease (principal); I50.9 Heart failure, unspecified; E78.5 Hyperlipidemia, unspecified; I48.20 Chronic atrial fibrillation, unspecified
CPT/HCPCS: 36415; 80048; 80061; 80076; 80162; 83880; 84439; 84443; 85025; 85610